=== PATIENT | male | born 1980 | race Caucasian/White ===

== ENCOUNTER 2016-09-15 00:06 | Emergency (ER) | payer BC, MEDICAID ==
[~2016-09-15] VITALS: Ht 182.9 cm; Wt 92.5 kg
[~2016-09-15 00:06] MED LIST: ALBU8.5H3; PREDNISONE
[2016-09-15 00:10] VITALS: Ht 182.9 cm; Wt 92.5 kg
[2016-09-15] MEDS ORDERED: METHYLPREDNISOLONE 125 MG INJ IV STA (01:11)
[2016-09-15] MEDS ORDERED: LEVALBUTEROL (NEB) 1.25 MG/0.5 ML AMP INH STA ×2 (01:11→03:03)
[2016-09-15] MEDS ORDERED: IPRATROPIUM (NEB) 0.5 MG/2.5 ML AMP INH STA ×2 (01:11→03:03)
[2016-09-15] MEDS ORDERED: METHYLPREDNISOLONE 125 MG INJ IM ONE (01:30)
--- NOTE | 2016-09-15 01:40 | RADRPT ---
PROCEDURE: XR Chest. CLINICAL INDICATION: CP, SOB TECHNIQUE: Single AP portable chest COMPARISON: 10/06/2007 FINDINGS: The cardiomediastinal silhouette is within normal limits. The lungs are clear without pleural effus ion or focal consolidation. No pneumothorax. The osseous structures and soft tissues are unremarkab le. IMPRESSION: No evidence for active cardiopulmonary disease. RPTAT:AAJJ Mindy Ortez Physician Date Time Electronically viewed and signed by Mindy Ortez Physician on 09/15/2016 01:39 SRIDHAR/
[2016-09-15] MEDS ORDERED: ACETAMINOPHEN 500 MG TAB PO STA (03:07)
[2016-09-15] MEDS ORDERED: PRED20TA PO (04:30)
--- NOTE | 2016-09-15 05:26 | ERD ---
ER Documentation Chief Complaint Date/Time DATE: 09/15/16 TIME: 05:23 Chief Complaint cough, colds x 4 days, wheezes HPI This is a 36-year-old male with a history of asthma presenting to the emergency room complaining of wheezing shortness of breath for the past couple hours. Patient states that he started having cough and nasal congestion for the past 4 days. Patient has been using albuterol and Thomas his last dose 45 minutes prior to being seen. Patient admits to having chest pain with inspiration. He denies any fever. He denies taking any other medication ROS All systems reviewed and are negative except as per history of present illness. Medications Home Meds Active Scripts Prednisone* (Prednisone*) 20 Mg Tab, 60 MG PO DAILY for 4 Days, TAB Prov:ISMAEL MEDINA PA-C 09/15/16 Reported Medications [Prednisone] No Conflict Check 01/13/12 Albuterol Sulfate* (Proair HFA*) 8.5 Gm Hfa.aer.ad 01/07/12 Allergies Allergies: Coded Allergies: No Known Allergy (Verified , 01/13/12) PMhx/Soc History of Surgery: No Anesthesia Reaction: Yes Hx Neurological Disorder: No Hx Respiratory Disorders: Yes (ASTHMA) Hx Cardiac Disorders: No Hx Psychiatric Problems: No Hx Miscellaneous Medical Probl: No Hx Alcohol Use: Yes (socially) Hx Substance Use: No Hx Tobacco Use: No Smoking Status: Never smoker Physical Exam Vitals Vital Signs Date Time Temp Pulse Resp B/P Pulse Ox O2 Delivery O2 Flow Rate FiO2 09/15/16 03:25 119 24 91 21 09/15/16 01:25 125 26 95 21 09/15/16 00:10 98.3 133 20 188/90 97 Physical Exam GENERAL: WD/WN, in no apparent distress, non-toxic appearing HENT: NC/AT, bilateral TM has good cone of light EYES: Conjunctiva normal NECK: Supple PULM: Inspiratory and expiratory wheezing. No rales, crackles, or rhonchi heard. No tripod position, normal labored breathing, no stridor, no evidence of using accessory muscles. CV: Good capillary refill, good S1 and S2, no murmurs appreciated tachycardia GI: Non-distended, no guarding BACK: No masses. EXT: No clubbing, cyanosis, or edema. NEURO: Moves on all fours SKIN: intact, no cyanosis. PSYCH: Normal mood Results 24 hrs Current Medications Medications (Trade) Dose Ordered Sig/Sylvie Route PRN Reason Start Time Stop Time Status Last Admin Dose Admin Levalbuterol (Xopenex Neb) 5 mg ONCE STAT INH 09/15/16 01:11 09/15/16 01:13 DC 09/15/16 01:27 Ipratropium Lyman (Atrovent 0.02% (Neb)) 1 mg ONCE STAT INH 09/15/16 01:11 09/15/16 01:13 DC 09/15/16 01:26 Methylprednisolone Sodium Succinate (Solu-Medrol) 125 mg ONCE STAT IV 09/15/16 01:11 09/15/16 01:17 DC Methylprednisolone Sodium Succinate (Solu-Medrol) 125 mg ONCE ONCE IM 09/15/16 01:30 09/15/16 01:31 DC 09/15/16 01:20 Levalbuterol (Xopenex Neb) 5 mg ONCE STAT INH 09/15/16 03:03 09/15/16 03:04 DC 09/15/16 03:25 Ipratropium Lyman (Atrovent 0.02% (Neb)) 1 mg ONCE STAT INH 09/15/16 03:03 09/15/16 03:04 DC 09/15/16 03:24 Acetaminophen (Tylenol Tab) 1,000 mg ONCE STAT PO 09/15/16 03:07 09/15/16 03:08 DC 09/15/16 03:17 Procedures/MDM This is a 36-year-old male with a history of asthma presenting to the emergency room with asthma exacerbation, low suspicion for status asthmaticus, pneumonia , inhaled foreign body, or other life threatening pulmonary emergencies due to physical examination. RT was consulted in the ED, breathing treatment was administered with Xopenex 5mg continuous and Atrovent 1mg, patient was given 125 mg Solu-Medrol IM injection. I have reassessed patient and he states that he still had trouble breathing, on examination he still had wheezing therefore another breathing treatment was given of 5 mg Xopenex and Atrovent 1 mg continuous for 1 hour. Patient was saturating well on room air throughout the whole encounter and wheezing improved. He is hemodynamically stable. Patient was saturating well on room air and shortness of breath improved. Prescription for prednisone was given, discussed to have a close follow-up with a primary care physician, discussed to return to the ED if not improving as expected or if condition worsens. Patient understood and agreed with this plan. There was no evidence of respiratory distress EKG: read and signed off by myself and Dr. Morfin Rate/Rhythm: Sinus tachycardia at 1 20 bpm QRS, ST, T-waves: No changes consistent w/ acute ischemia Impression: No evidence of ischemia or arrhythmia Departure Diagnosis: Primary Impression: Asthma exacerbation Condition: Stable Patient Instructions: Asthma Medications, Asthma, Acute (Adult) Additional Instructions: FOLLOW UP WITH YOUR PRIMARY CARE PHYSICIAN TOMORROW.Return to this facility if you are not improving as expected. Return to this facility if you are not improving as expected. Take all medicines as directed. ISMAEL MEDINA PA-C Sep 15, 2016 05:26
[2016-09-15 05:34] VITALS: BP 125/61; PULSE 108; TEMP 97.8
== END 2016-09-15 05:36 | disposition home or self-care (01) ==
LOC: FTE 00:06
DX: J45.901 Unspecified asthma with (acute) exacerbation (principal)
CPT/HCPCS: 71010; 93005; 94644; 96372; J2930; Z7502; Z7610

== ENCOUNTER 2017-03-09 18:05 | Emergency (ER) | payer MEDICAID ==
[~2017-03-09] VITALS: Ht 172.7 cm; Wt 101.1 kg
[~2017-03-09 18:05] MED LIST changes: +PRED20TA PO
[2017-03-09 18:06] VITALS: Ht 172.7 cm; Wt 101.1 kg
[2017-03-09] MEDS ORDERED: ALBUTEROL 0.083% (NEB) 2.5 MG/3 ML AMP HHN STA (18:21)
--- NOTE | 2017-03-09 18:21 | ERD ---
ER Documentation Chief Complaint Date/Time DATE: 03/09/17 TIME: 18:18 Chief Complaint SHORTNESS OF BREATH, ASTHMA ATTACK HPI This 37-year-old male with a history of asthma says that beginning this morning started to experience an asthma attack getting progressively more short of breath throughout the day. Uses albuterol inhaler and his machine at home with some r relief but is still getting worse. He denies any fever chills or feeling poorly lately. ROS All systems reviewed and are negative except as per history of present illness. Medications Home Meds Active Scripts Prednisone* (Prednisone*) 20 Mg Tab, 60 MG PO DAILY for 4 Days, TAB Prov:ISMAEL MEDINA PA-C 09/15/16 Reported Medications [Prednisone] No Conflict Check 01/13/12 Albuterol Sulfate* (Proair HFA*) 8.5 Gm Hfa.aer.ad 01/07/12 Allergies Allergies: Coded Allergies: No Known Allergy (Verified , 01/13/12) PMhx/Soc History of Surgery: No Anesthesia Reaction: Yes Hx Neurological Disorder: No Hx Respiratory Disorders: Yes (ASTHMA) Hx Cardiac Disorders: No Hx Psychiatric Problems: No Hx Miscellaneous Medical Probl: No Hx Alcohol Use: Yes (socially) Hx Substance Use: No Hx Tobacco Use: No Physical Exam Vitals Vital Signs Date Time Temp Pulse Resp B/P Pulse Ox O2 Delivery O2 Flow Rate FiO2 03/09/17 18:06 98.6 130 29 136/87 97 Physical Exam Const: [] Moderate distress, appears very short of breath Head: Atraumatic Eyes: Normal Conjunctiva ENT: Normal External Ears, Nose and Mouth. Neck: Full range of motion..~ No meningismus. Resp: Pronounced bilateral expiratory wheezes, mild tachypnea Cardio: Regular rate and rhythm, no murmurs Ext: No cyanosis, or edema Neur: Awake and alert and oriented 3, no focal deficits Psych: Normal Mood and Affect Procedures/MDM Moderately severe asthma exacerbation. I have low suspicion for pneumonia or pulmonary embolism. 15 mg albuterol and 1 mg Atrovent treatment in the emergency room. Is also given a prednisone 60 mg tablet. His wheezing resolved and he felt much better after the long treatment. Going to discharge him with refill his albuterol inhaler as well as prednisone for 4 more days. Primary care follow-up in the next 2 days as well as return precautions given. Departure Diagnosis: Primary Impression: Acute asthma exacerbation BRIANA VALIENTE DO Mar 09, 2017 18:21
[2017-03-09] MEDS ORDERED: PRED50TA PO (18:25)
[2017-03-09] MEDS ORDERED: ALBU18HF INHALATION (18:25)
[2017-03-09] MEDS ORDERED: ALBU2.5V3 NEB (18:25)
[2017-03-09] MEDS ORDERED: predniSONE 20 MG TAB PO ONE (18:30)
[2017-03-09] MEDS ORDERED: IPRATROPIUM (NEB) 0.5 MG/2.5 ML AMP HHN ONE (18:30)
[2017-03-09] MEDS ORDERED: LEVALBUTEROL (NEB) 1.25 MG/0.5 ML AMP INH STA (20:22)
[2017-03-09] MEDS ORDERED: LEVALBUTEROL (NEB) 1.25 MG/0.5 ML AMP HHN ONE (20:30)
[2017-03-09 21:52] VITALS: BP 153/87; PULSE 112; RESP 16
== END 2017-03-09 21:55 | disposition home or self-care (01) ==
LOC: FTE 18:05
DX: J45.901 Unspecified asthma with (acute) exacerbation (principal)
CPT/HCPCS: 94644; 94645; J7512; Z7502; Z7610

== ENCOUNTER 2018-07-14 17:57 | Emergency (ER) | END 2018-07-14 21:16 | disposition home or self-care (01) ==

== ENCOUNTER 2018-09-14 07:45 | Emergency (ER) | payer SELFPAY ==
[~2018-09-14] VITALS: Ht 167.6 cm; Wt 112.3 kg
[~2018-09-14 07:45] MED LIST changes: +ALBU18HF INHALATION; +ALBU2.5V3 NEB; -ALBU8.5H3; +ALBU8.5H8; +BECL10.62 IH; +PRED50TA PO
[2018-09-14 07:48] VITALS: BP 127/89; PULSE 106; RESP 20; Ht 167.6 cm; Wt 112.3 kg
[2018-09-14] MEDS ORDERED: DEXAMETHASONE 10 MG/ML 1 ML INJ IM STA (08:05)
[2018-09-14] MEDS ORDERED: ALBUTEROL 0.083% (NEB) 2.5 MG/3 ML AMP NEB STA (08:05)
[2018-09-14] MEDS ORDERED: IPRATROPIUM (NEB) 0.5 MG/2.5 ML AMP NEB STA (08:05)
[2018-09-14] MEDS ORDERED: PRED20TA PO (08:08)
[2018-09-14] MEDS ORDERED: BECL10.62 IH (08:08)
[2018-09-14] MEDS ORDERED: ALBU8.5H8 INH (08:08)
--- NOTE | 2018-09-14 08:16 | ERD ---
ER Documentation Chief Complaint Chief Complaint Complains of SOB Hx of Asthma out of medication HPI This is a 38-year-old male with a history of asthma who presents ED with complaints of having an episode of wheezing and shortness of breath earlier today. Patient states that this occurred while he is at work. Patient states that he ran out of his Qvar and his albuterol inhaler last night. Patient states that he was able to calm himself down after this episode and he no longer is experiencing wheezing, shortness of breath trouble breathing or chest tightness. Patient would like a refill of his Qvar inhaler and albuterol and also would like a breathing treatment in the emergency department today. Denies fever, chills, congestion, cough, sputum production, nausea, vomiting, constipation, abdominal pain other symptoms. History of prior intubation and hospitalization for asthma ROS All systems reviewed and are negative except as per history of present illness. Medications Home Meds Active Scripts Prednisone* (Prednisone*) 20 Mg Tab, 40 MG PO DAILY for 4 Days, TAB Prov:ZENAIDA BUCK PA-C 09/14/18 Beclomethasone Dipropionate (Qvar Redihaler (80 MCG)) 10.6 Gm Hfa.aeroba, 10.6 GM IH DAILY, #1 INH Prov:ZENAIDA BUCK PA-C 09/14/18 Albuterol Sulfate* (Proair HFA*) 8.5 Gm Hfa.aer.ad, 2 PUFF INH Q4, #1 INHALER Prov:ZENAIDA BUCK PA-C 09/14/18 Beclomethasone Dipropionate (Qvar Redihaler (80 MCG)) 10.6 Gm Hfa.aeroba, 10.6 GM IH DAILY, #1 INH Prov:NEIL DUNBAR PA-C 07/14/18 Albuterol Sulfate* (Ventolin HFA*) 18 Gm Hfa.aer.ad, 2 PUFF INHALATION Q4H, #1 INHALER Prov:NEIL DUNBAR PA-C 07/14/18 Prednisone* (Prednisone*) 20 Mg Tab, 40 MG PO DAILY for 4 Days, TAB Prov:NEIL DUNBAR PA-C 07/14/18 Prednisone* (Prednisone*) 50 Mg Tablet, 50 MG PO DAILY, #4 TAB Prov:BRIANA VALIENTE DO 03/09/17 Albuterol Sulfate* (Ventolin HFA*) 18 Gm Hfa.aer.ad, 2 PUFF INHALATION Q4H, #1 INHALER Prov:BRIANA VALIENTE DO 03/09/17 Albuterol Sulfate* (Albuterol Sulfate* Neb) 0.083%-3 Ml Neb, 5 MG NEB Q4H, #30 VIAL Prov:BRIANA VALIENTE DO 03/09/17 Prednisone* (Prednisone*) 20 Mg Tab, 60 MG PO DAILY for 4 Days, TAB Prov:ISMAEL MEDINA PA-C 09/15/16 Reported Medications [Prednisone] No Conflict Check 01/13/12 Albuterol Sulfate* (Proair HFA*) 8.5 Gm Hfa.aer.ad 01/07/12 Allergies Allergies: Coded Allergies: No Known Allergy (Verified , 07/14/18) PMhx/Soc History of Surgery: No Anesthesia Reaction: Yes Hx Neurological Disorder: No Hx Respiratory Disorders: Yes (asthma ) Hx Cardiac Disorders: No Hx Psychiatric Problems: No Hx Miscellaneous Medical Probl: No Hx Alcohol Use: Yes (ocassionally ) Hx Substance Use: No Hx Tobacco Use: No FmHx Family History: No diabetes Physical Exam Vitals Vital Signs Date Temp Pulse Resp B/P (MAP) Pulse Ox O2 O2 Flow FiO2 Time Delivery Rate 09/14/18 88 20 98 21 08:20 09/14/18 99.0 106 20 127/89 95 07:48 (102) Physical Exam Physical Exam Vitals signs: Reviewed by me. General: Well developed, well nourished, in no acute distress. Patient is awake and alert. Head: Normocephalic, atraumatic. Eyes: Normal conjunctiva, Pupils PERRLA, EOM intact grossly ENT: Pharynx is clear, Moist mucous membranes, external ears, nose and mouth normal Neck: Supple, no masses, lymphadenopathy or JVD Respiratory: Clear to auscultation bilaterally with no wheezing, rhonchi, rales, no distress, no labored breathing, no shallow inspiration, Cardiovascular: RRR, no murmurs, rubs, or gallops Neurologic: Alert and oriented, moving all extremities, normal speech, no focal weakness, no cerebellar signs. Normal mentation Skin: warm and dry, No rash Psych: Normal mood Results 24 hrs Current Medications Medications Dose Sig/Sylvie Start Time Status Last (Trade) Ordered Route PRN Stop Time Admin Dose Reason Admin Albuterol 5 mg ONCE STAT 09/14/18 DC 09/14/18 (Proventil NEB 08:05 09/14/18 08:19 0.083% (Neb)) 08:07 Ipratropium 0.5 mg ONCE STAT 09/14/18 DC 09/14/18 Henderson NEB 08:05 09/14/18 08:19 (Atrovent 08:07 0.02% (Neb)) 10 mg ONCE STAT 09/14/18 DC 09/14/18 Dexamethasone IM 08:05 09/14/18 08:12 (Decadron) 08:07 Procedures/MDM ER COURSE: The patient was given Decadron IM, breathing treatment in ED The medication was well tolerated and the patient reports improvement in symptoms. The patient was stable throughout ED course. I kept the patient and/or family informed of laboratory and diagnostic imaging results throughout the emergency room course. The patient was promptly evaluated and a treatment plan was devised based on H&P and other data. This plan was discussed with the patient who agreed and had no further questions or concerns prior to discharge. MEDICAL DECISION MAKING: This is a 38-year-old male with a history of asthma who presents ED with complaints of an episode of wheezing and shortness of breath early this morning and also requesting to get a refill this medication. physical examination is unremarkable and there is no wheezing, labored breathing, shortness of breath, or retractions. Patient is requesting a breathing treatment in the emergency department. Patient was given breathing treatment in the emergency department reports feeling better. Pt initial oxygen saturation at arrival in ED was 95, and after breathing treatment oxygen saturation has increased to 98. I have written a refill for patient's Qvar, albuterol inhaler and a short course of steroids. History and physical examination other data not consistent with emergent processes including status asthmaticus, pneumonia, pneumothorax, pleural effusion, sepsis, pulmonary embolism, tension pneumothorax, and other emergencies. There are no emergent life-threatening pathologies at time of discharge. Vitals are stable and patient is appropriate for outpatient management. Advised patient that he needs to follow-up with his primary care in the next 48 hours. Advised to return to ED with any worsening symptoms. DISPOSITION PLAN: We discussed follow up with the patient's primary care doctor within 24 to 48 hours. Patient counseled regarding my diagnostic impression and care plan. Prior to discharge all questions answered. Pt agrees with treatment plan and understands strict return precautions. Precautionary instructions provided including instructions to return to the ER if not improving or for any worsening or changing symptoms or concerns. SPECIALIST FOLLOW UP RECOMMENDED: None Patient has been advised to follow up with primary care in 1-2 days. Disclaimer: Inadvertent spelling and grammatical errors are likely due to EHR/dictation software use and do not reflect on the overall quality of patient care. Also, please note that the electronic time recorded on this note does not necessarily reflect the actual time of the patient encounter. Departure Diagnosis: Primary Impression: Asthma Asthma severity: unspecified severity Asthma persistence: unspecified Asthma complication type: uncomplicated Qualified Codes: J45.909 - Unspecified asthma, uncomplicated Condition: Stable Patient Instructions: Asthma Referrals: [facility] YOU HAVE RECEIVED A MEDICAL SCREENING EXAM AND THE RESULTS INDICATE THAT YOU DO NOT HAVE A CONDITION THAT REQUIRES URGENT TREATMENT IN THE EMERGENCY DEPARTMENT. FURTHER EVALUATION AND TREATMENT OF YOUR CONDITION CAN WAIT UNTIL YOU ARE SEEN IN YOUR DOCTORS OFFICE WITHIN THE NEXT 1-2 DAYS. IT IS YOUR RESPONSIBILITY TO MAKE AN APPOINTMENT FOR FOLOW-UP CARE. IF YOU HAVE A PRIMARY DOCTOR --you should call your primary doctor and schedule an appointment IF YOU DO NOT HAVE A PRIMARY DOCTOR YOU CAN CALL OUR PHYSICIAN REFERRAL HOTLINE AT IF YOU CAN NOT AFFORD TO SEE A PHYSICIAN YOU CAN CHOSE FROM THE FOLLOWING [facility] [address] [facility]. [facility] [address] [facility]. [facility] [address] [facility] [facility] [address] [facility]. [facility] [address] [facility]. [facility]. [address] Additional Instructions: Patient advised to return to the ED immediately for new or worsening symptoms. Patient advised to follow up with primary care provider in the next 24-48 hours. Patient verbalized understanding and agrees with treatment plan and course of action. If patient has no primary care they may follow up with one of the community clinics listed on the following page or one of the options listed below [facility] + [facility] [address] [place] [id number] or [facility] [address] [place] [address] or [facility] [address] [place] [address] ZENAIDA BUCK PA-C Sep 14, 2018 08:16
== END 2018-09-14 09:02 | disposition home or self-care (01) ==
LOC: FTE 07:45
DX: J45.901 Unspecified asthma with (acute) exacerbation (principal)
CPT/HCPCS: 94664; 96372; 99284; J1100

== ENCOUNTER 2018-10-02 07:56 | Emergency (ER) | payer SELFPAY ==
[~2018-10-02] VITALS: Ht 172.7 cm; Wt 112.4 kg
[~2018-10-02 07:56] MED LIST changes: +ALBU8.5H8 INH
[2018-10-02 07:58] VITALS: BP 168/82; PULSE 88; RESP 18; Ht 172.7 cm; Wt 112.4 kg
[2018-10-02] MEDS ORDERED: KETOROLAC 60 MG INJ IM STA (08:30)
[2018-10-02] MEDS ORDERED: SULF1TAB31 PO (08:46)
[2018-10-02] MEDS ORDERED: IBUP-1542 PO (08:46)
[2018-10-02] MEDS ORDERED: CEPH-443 PO (08:46)
--- NOTE | 2018-10-02 11:52 | ERD ---
ER Documentation Chief Complaint Chief Complaint LT FOOT TOES SWOLLEN X 3 DAYS , DENIES INJURY HPI 38-year-old male patient with a past medical history of asthma presents to the ED complaining of left foot swelling and redness that started 3 days ago. Patient reports that he is unsure but may have gotten bitten by an insect in his toes. Reports he has a blister between his neck and and third toe. Denies any fever, chills, nausea, vomiting, diarrhea, neck stiffness, loss of sensation, loss of range of motion. Denies any trauma. ROS All systems reviewed and are negative except as per history of present illness. Medications Home Meds Active Scripts Ibuprofen* (Motrin*) 600 Mg Tab, 600 MG PO Q6, #30 TAB Prov:HALEY SAUCEDA PA-C 10/02/18 Sulfamethoxazole/Trimethoprim* (Bactrim Ds* Tablet) 1 Each Tablet, 1 TAB PO BID for 7 Days, #14 TAB Prov:HALEY SAUCEAD PA-C 10/02/18 Cephalexin* (Keflex*) 500 Mg Capsule, 500 MG PO QID for 7 Days, CAP Prov:HALEY SAUCEDA PA-C 10/02/18 Prednisone* (Prednisone*) 20 Mg Tab, 40 MG PO DAILY for 4 Days, TAB Prov:ZENAIDA BUCK PA-C 09/14/18 Beclomethasone Dipropionate (Qvar Redihaler (80 MCG)) 10.6 Gm Hfa.aeroba, 10.6 GM IH DAILY, #1 INH Prov:ZENAIDA BUCK PA-C 09/14/18 Albuterol Sulfate* (Proair HFA*) 8.5 Gm Hfa.aer.ad, 2 PUFF INH Q4, #1 INHALER Prov:ZENAIDA BUCK PA-C 09/14/18 Beclomethasone Dipropionate (Qvar Redihaler (80 MCG)) 10.6 Gm Hfa.aeroba, 10.6 GM IH DAILY, #1 INH Prov:NEIL DUNBAR PA-C 07/14/18 Albuterol Sulfate* (Ventolin HFA*) 18 Gm Hfa.aer.ad, 2 PUFF INHALATION Q4H, #1 INHALER Prov:NEIL DUNBAR PA-C 07/14/18 Prednisone* (Prednisone*) 20 Mg Tab, 40 MG PO DAILY for 4 Days, TAB Prov:NEIL DUNBAR PA-C 07/14/18 Prednisone* (Prednisone*) 50 Mg Tablet, 50 MG PO DAILY, #4 TAB Prov:BRIANA VALIENTE DO 03/09/17 Albuterol Sulfate* (Ventolin HFA*) 18 Gm Hfa.aer.ad, 2 PUFF INHALATION Q4H, #1 INHALER Prov:BRIANA VALIENTE DO 03/09/17 Albuterol Sulfate* (Albuterol Sulfate* Neb) 0.083%-3 Ml Neb, 5 MG NEB Q4H, #30 VIAL Prov:BRIANA VALIENTE DO 03/09/17 Prednisone* (Prednisone*) 20 Mg Tab, 60 MG PO DAILY for 4 Days, TAB Prov:ISMAEL MEDINA PA-C 09/15/16 Reported Medications [Prednisone] No Conflict Check 01/13/12 Albuterol Sulfate* (Proair HFA*) 8.5 Gm Hfa.aer.ad 01/07/12 Allergies Allergies: Coded Allergies: No Known Allergy (Verified , 07/14/18) PMhx/Soc History of Surgery: No Anesthesia Reaction: Yes Hx Neurological Disorder: No Hx Respiratory Disorders: Yes (asthma ) Hx Cardiac Disorders: No Hx Psychiatric Problems: No Hx Miscellaneous Medical Probl: No Hx Alcohol Use: Yes (ocassionally ) Hx Substance Use: No Hx Tobacco Use: No FmHx Family History: No diabetes, No coronary disease Physical Exam Vitals Vital Signs Date Temp Pulse Resp B/P (MAP) Pulse Ox O2 O2 Flow FiO2 Time Delivery Rate 10/02/18 98.2 88 18 168/82 98 07:58 (110) Physical Exam Const: Cse-npr-rbqrmecyi, well-nourished. In no acute distress. Head: Atraumatic, normocephalic Eyes: Normal Conjunctiva without injection ENT: Normal external ear, nose and mouth. Neck: Full range of motion. No meningismus. Resp: Clear to auscultation bilaterally. No wheezing, rhonchi, rales, or crackles. No accessory muscle use. No retractions. Cardio: Regular rate and rhythm, no murmurs Skin: No petechiae or rashes Back: No midline tenderness. No CVA tenderness. Ext: No cyanosis, or edema. Cap refill less than 2 seconds. Distal pulses intact bilaterally. Clear fluid-filled blister 2.5 cm in size noted in between third and fourth left toes with extending erythema to the dorsum of patient's left foot with no ankle involvement. Full range of motion of the IP, MTP joints bilaterally. Neur: Awake and alert. Normal gait and coordination. Muscle strength 5/5. Sensation intact bilaterally. Psych: Normal Mood and Affect Results 24 hrs Current Medications Medications Dose Sig/Sylvie Start Time Status Last (Trade) Ordered Route PRN Stop Time Admin Dose Reason Admin Ketorolac 60 mg ONCE STAT 10/02/18 DC 10/02/18 Tromethamine IM 08:30 08:41 (Toradol) 10/02/18 08:31 Procedures/MDM 38-year-old male patient with no significant past medical history presents to the ED complaining of left foot toe swelling with a blister noted 3 days ago. Patient is afebrile and nontoxic-appearing. Patient has a blister noted in the second and third toe. Patient was treated here in the ED with Toradol 60 mg IM with improvement of his pain. Differentials include friction blister versus insect bite. Patient was noted to have cellulitis. Pen marking performed in the ED. Instructed patient that if there is any erythema extending past the pen marking, he is to return to the ED for the symptoms. Patient is neurovascularly intact. Patient's extremity symptoms have stabilized while they have been evaluated in the department and are appropriate for outpatient follow up. No evidence of fractures, dislocations, compartment syndrome, neurologic injury, vascular injury, open joint, open fracture, tendon laceration, septic arthritis, osteomyelitis, DVT, foreign body, or other emergent conditions. Diagnosis: Cellulitis of left foot, Blister of left foot Discharge medications: Ibuprofen, Bactrim, Keflex Follow up with primary care physician in 1-2 days. Wound check in 2 days. Instructed patient to return to the ED sooner for any worsening symptoms. Patient's questions were answered. Patient is hemodynamically stable. Patient understood and agreed with discharge plan. Patient discharged stable. Disclaimer: Inadvertent spelling and grammatical errors are likely due to EHR/dictation software use and do not reflect on the overall quality of patient care. Also, please note that the electronic time recorded on this note does not necessarily reflect the actual time of the patient encounter. Departure Diagnosis: Primary Impression: Cellulitis of foot, left Additional Impression: Blister of foot, left Encounter type: initial encounter Qualified Codes: S90.822A - Blister (nonthermal), left foot, initial encounter Condition: Stable Patient Instructions: Cellulitis, Blister Referrals: [facility] YOU HAVE RECEIVED A MEDICAL SCREENING EXAM AND THE RESULTS INDICATE THAT YOU DO NOT HAVE A CONDITION THAT REQUIRES URGENT TREATMENT IN THE EMERGENCY DEPARTMENT. FURTHER EVALUATION AND TREATMENT OF YOUR CONDITION CAN WAIT UNTIL YOU ARE SEEN IN YOUR DOCTORS OFFICE WITHIN THE NEXT 1-2 DAYS. IT IS YOUR RESPONSIBILITY TO MAKE AN APPOINTMENT FOR FOLOW-UP CARE. IF YOU HAVE A PRIMARY DOCTOR --you should call your primary doctor and schedule an appointment IF YOU DO NOT HAVE A PRIMARY DOCTOR YOU CAN CALL OUR PHYSICIAN REFERRAL HOTLINE AT IF YOU CAN NOT AFFORD TO SEE A PHYSICIAN YOU CAN CHOSE FROM THE FOLLOWING [facility] [id number] [facility] [address] [facility] [address] [facility] [address] [facility]. [facility] [address] [facility] [address] [facility] [address] [facility]. [facility]. [address] [facility]. [facility] YOU HAVE RECEIVED A MEDICAL SCREENING EXAM AND THE RESULTS INDICATE THAT YOU DO NOT HAVE A CONDITION THAT REQUIRES URGENT TREATMENT IN THE EMERGENCY DEPARTMENT. FURTHER EVALUATION AND TREATMENT OF YOUR CONDITION CAN WAIT UNTIL YOU ARE SEEN IN YOUR DOCTORS OFFICE WITHIN THE NEXT 1-2 DAYS. IT IS YOUR RESPONSIBILITY TO MAKE AN APPOINTMENT FOR FOLOW-UP CARE. IF YOU HAVE A PRIMARY DOCTOR --you should call your primary doctor and schedule and appointment IF YOU DO NOT HAVE A PRIMARY DOCTOR YOU CAN CALL OUR PHYSICIAN REFERRAL HOTLINE AT . IF YOU CAN NOT AFFORD TO SEE A PHYSICIAN YOU CAN CHOSE FROM THE FOLLOWING [facility] INSTITUTIONS: [facility] [address] [place] [address] [facility] [address] [place] [address] [facility] + [facility] [address] [place] [address] [facility] URGENT CARE/SPECIALTIES Additional Instructions: Follow up in 2 days in your clinic for wound check. Call your primary care doctor TOMORROW for an appointment during the next 2-3 days.See the doctor sooner or return here if your condition worsens before your appointment time. HALEY SAUCEDA PA-C Oct 02, 2018 11:52
== END 2018-10-02 09:18 | disposition home or self-care (01) ==
LOC: FTE 07:56
DX: L03.116 Cellulitis of left lower limb (principal); S90.822A Blister (nonthermal), left foot, initial encounter; J45.909 Unspecified asthma, uncomplicated; W57.XXXA Bitten or stung by nonvenomous insect and other nonvenomous arthropods, initial encounter; Y92.9 Unspecified place or not applicable
CPT/HCPCS: 96372; 99284; J1885

== ENCOUNTER 2018-10-11 11:37 | Emergency (ER) | payer SELFPAY ==
[~2018-10-11] VITALS: Ht 172.7 cm; Wt 109.6 kg
[~2018-10-11 11:37] MED LIST changes: +CEPH-443 PO; +IBUP-1542 PO; +SULF1TAB31 PO
[2018-10-11 11:40] VITALS: Ht 172.7 cm; Wt 109.6 kg
[2018-10-11] MEDS ORDERED: ALBUTEROL 0.5% (NEB) 2.5 MG/0.5 ML AMP INH STA (11:54)
[2018-10-11] MEDS ORDERED: IPRATROPIUM (NEB) 0.5 MG/2.5 ML AMP INH STA (11:54)
[2018-10-11] MEDS ORDERED: DEXAMETHASONE 10 MG/ML 1 ML INJ IM STA (11:54)
--- NOTE | 2018-10-11 12:41 | ERD ---
ER Documentation Chief Complaint Chief Complaint asthma out of inhaler, used inhaler last night HPI This patient is a 38-year-old male with past medical history of asthma presenting to the emergency department complaining of wheezing and asthma exacerbation for the past 1 day. He states he ran out of his inhaler yesterday. He does have a nebulizer at home but ran out of the albuterol vials. Symptoms are mild in severity and intermittent. He does report history of intubation and approximately 6 hospitalizations in the past for his asthma. He denies any sore throat, fevers, chills, or other symptoms at this time. ROS All systems reviewed and are negative except as per history of present illness. Medications Home Meds Active Scripts Albuterol Sulfate* (Albuterol Sulfate* Neb) 0.083%-3 Ml Neb, 2.5 MG NEB Q4 PRN for SHORTNESS OF BREATH, #30 EA Prov:NEIL DUNBAR PA-C 10/11/18 Albuterol Sulfate* (Ventolin HFA*) 18 Gm Hfa.aer.ad, 2 PUFF INHALATION Q4H, #1 INHALER Prov:NEIL DUNBAR PA-C 10/11/18 Prednisone* (Prednisone*) 20 Mg Tab, 40 MG PO DAILY for 4 Days, TAB Prov:NEIL DUNBAR PA-C 10/11/18 Ibuprofen* (Motrin*) 600 Mg Tab, 600 MG PO Q6, #30 TAB Prov:HALEY SAUCEDA PA-C 10/02/18 Sulfamethoxazole/Trimethoprim* (Bactrim Ds* Tablet) 1 Each Tablet, 1 TAB PO BID for 7 Days, #14 TAB Prov:HALEY SAUCEDA PA-C 10/02/18 Cephalexin* (Keflex*) 500 Mg Capsule, 500 MG PO QID for 7 Days, CAP Prov:HALEY SAUCEDA PA-C 10/02/18 Prednisone* (Prednisone*) 20 Mg Tab, 40 MG PO DAILY for 4 Days, TAB Prov:ZENAIDA BUCK PA-C 09/14/18 Beclomethasone Dipropionate (Qvar Redihaler (80 MCG)) 10.6 Gm Hfa.aeroba, 10.6 GM IH DAILY, #1 INH Prov:ZENAIDA BUCK PA-C 09/14/18 Albuterol Sulfate* (Proair HFA*) 8.5 Gm Hfa.aer.ad, 2 PUFF INH Q4, #1 INHALER Prov:ZENAIDA BUCK PA-C 09/14/18 Beclomethasone Dipropionate (Qvar Redihaler (80 MCG)) 10.6 Gm Hfa.aeroba, 10.6 GM IH DAILY, #1 INH Prov:NEIL DUNBAR PA-C 07/14/18 Albuterol Sulfate* (Ventolin HFA*) 18 Gm Hfa.aer.ad, 2 PUFF INHALATION Q4H, #1 INHALER Prov:NEIL DUNBAR PA-C 07/14/18 Prednisone* (Prednisone*) 20 Mg Tab, 40 MG PO DAILY for 4 Days, TAB Prov:NEIL DUNBAR PA-C 07/14/18 Prednisone* (Prednisone*) 50 Mg Tablet, 50 MG PO DAILY, #4 TAB Prov:BRIANA VALIENTE DO 03/09/17 Albuterol Sulfate* (Ventolin HFA*) 18 Gm Hfa.aer.ad, 2 PUFF INHALATION Q4H, #1 INHALER Prov:BRIANA VALIENTE DO 03/09/17 Albuterol Sulfate* (Albuterol Sulfate* Neb) 0.083%-3 Ml Neb, 5 MG NEB Q4H, #30 VIAL Prov:BRIANA VALIENTE DO 03/09/17 Prednisone* (Prednisone*) 20 Mg Tab, 60 MG PO DAILY for 4 Days, TAB Prov:ISMAEL MEDINA PA-C 09/15/16 Reported Medications [Prednisone] No Conflict Check 01/13/12 Albuterol Sulfate* (Proair HFA*) 8.5 Gm Hfa.aer.ad 01/07/12 Allergies Allergies: Coded Allergies: No Known Allergy (Verified , 07/14/18) PMhx/Soc Medical and Surgical Hx: pt denies Surgical Hx History of Surgery: No Anesthesia Reaction: Yes Hx Neurological Disorder: No Hx Respiratory Disorders: Yes (asthma ) Hx Cardiac Disorders: No Hx Psychiatric Problems: No Hx Miscellaneous Medical Probl: No Hx Alcohol Use: Yes (ocassionally ) Hx Substance Use: No Hx Tobacco Use: No Smoking Status: Never smoker FmHx Family History: No diabetes Physical Exam Vitals Vital Signs Date Temp Pulse Resp B/P (MAP) Pulse Ox O2 O2 Flow FiO2 Time Delivery Rate 10/11/18 95 18 96 21 12:21 10/11/18 98.6 104 20 161/91 96 11:40 (114) Physical Exam Const: No acute distress Head: Atraumatic Eyes: Normal Conjunctiva ENT: Normal External Ears, Nose and Mouth. Neck: Full range of motion. No meningismus. Resp: No obvious respiratory distress. Inspiratory and expiratory wheezing noted to all lung carlton. No crackles. Cardio: Regular rate and rhythm, no murmurs Skin: No petechiae or rashes Ext: No cyanosis, or edema Neur: Awake and alert Psych: Normal Mood and Affect Results 24 hrs Current Medications Medications Dose Sig/Sylvie Start Time Status Last (Trade) Ordered Route PRN Stop Time Admin Dose Reason Admin Albuterol 10 mg ONCE STAT 10/11/18 DC 10/11/18 (Proventil INH 11:54 10/11/18 12:19 0.5% (Neb)) 11:55 Ipratropium 1 mg ONCE STAT 10/11/18 DC 10/11/18 Senatobia INH 11:54 10/11/18 12:19 (Atrovent 11:55 0.02% (Neb)) 10 mg ONCE STAT 10/11/18 DC 10/11/18 Dexamethasone IM 11:54 10/11/18 12:00 (Decadron) 11:55 Procedures/MDM Patient is a 38-year-old male presenting to the emergency department with complaints of asthma exacerbation. The patient did have inspiratory and expiratory wheezing noted to all lung carlton without evidence of respiratory distress. He was immediately placed into a stretcher. He was administered albuterol/ipratropium breathing treatment for 1 hour. Pt was also administered IM Decadron. On reevaluation he was significantly improved. Patient's respiratory status has stabilized while in the department and is appropriate for outpatient work up. Exam and work up not consistent w/ impending respiratory failure or cardiovascular collapse. No evidence of life-threatening pathology at time of discharge. Pt/family in agreement with discharge plan/diagnosis. Pt/family advised to return immediately with any new or worsening symptoms. Follow-up with primary care physician within the next 1-2 days. Patient's blood pressure was elevated (>120/80) but appears stable without evidence of hypertension emergency or urgency. The patient is to follow-up and pursue outpatient monitoring and therapy with their primary care physician within 1 week and return immediately if they have any new, worsening, or concerning symptoms. Disclaimer: Inadvertent spelling and grammatical errors are likely due to EHR/dictation software use and do not reflect on the overall quality of patient care. Also, please note that the electronic time recorded on this note does not necessarily reflect the actual time of the patient encounter. Departure Diagnosis: Primary Impression: Asthma with acute exacerbation Asthma severity: unspecified severity Asthma persistence: unspecified Qualified Codes: J45.901 - Unspecified asthma with (acute) exacerbation Condition: Fair Patient Instructions: Asthma, Acute (Adult) Additional Instructions: Follow up with your PCP within the next 1-3 days for a repeat evaluation. If you require a referral to a specialist, your Primary Care Provider may be able to provide this for you. In most patient cases, a referral is not required. If you have further questions regarding this matter, please ask your Primary Care Provider. Return the the emergency department immediately if symptoms worsen or change. If you have any questions regarding medications, ask your pharmacist or us before you leave. If any adverse reactions, occur while taking your medications, discontinue the treatment and return to the emergency department immediately. If any new or worsening symptoms, uncontrolled fevers, or other unexplained symptoms occur, return to the emergency department immediately. Take your medications as directed, and complete the entire course of treatment. NEIL DUNBAR PA-C Oct 11, 2018 12:41
[2018-10-11] MEDS ORDERED: ALBU2.5V3 NEB (12:52)
[2018-10-11] MEDS ORDERED: ALBU18HF INHALATION (12:52)
[2018-10-11] MEDS ORDERED: PRED20TA PO (12:52)
[2018-10-11 13:25] VITALS: BP 138/85; PULSE 90; RESP 16
== END 2018-10-11 13:25 | disposition home or self-care (01) ==
LOC: FTE 11:37
DX: J45.901 Unspecified asthma with (acute) exacerbation (principal)
CPT/HCPCS: 94644; 96372; 99284; J1100

== ENCOUNTER 2018-10-18 21:36 | Inpatient (IN) | payer SELFPAY ==
[~2018-10-18] VITALS: Ht 172.7 cm; Wt 112.4 kg
[2018-10-18] MEDS ORDERED: DEXAMETHASONE 10 MG/ML 1 ML INJ IV STA (22:11)
[2018-10-18] MEDS ORDERED: SOD CHLORIDE 0.9% 1,000 ML IV STA (22:11)
[2018-10-18] MEDS ORDERED: EPINEPHrine 1 MG INJ SC STA (22:11)
[2018-10-18] MEDS ORDERED: ALBUTEROL 0.5% (NEB) 2.5 MG/0.5 ML AMP INH STA (22:11)
--- NOTE | 2018-10-18 22:41 | ERD ---
ER Documentation Chief Complaint Chief Complaint CP w/ SOB/itching/total body rash/dizziness/nausea, unk allergy x1 hour HPI 38-year-old man complains of full body itchy red rash, shortness of breath, wheezing, palpitations, nausea and dizziness occurring shortly after eating chicken, rice, and red sauce. Patient also used 2 doses of cephalexin today, but he had been using that all last week for a left third toe infection. Delfina ent denies loss of consciousness but he does have a history of asthma and admits to wheezing with today's episode. He denies recent fevers or chills, no changes in his voice, no sore throat, no difficulty speaking or swallowing. Patient denies abdominal pain or cramping. ROS All systems reviewed and are negative except as per history of present illness. Medications Home Meds Active Scripts Albuterol Sulfate* (Albuterol Sulfate* Neb) 0.083%-3 Ml Neb, 2.5 MG NEB Q4 PRN for SHORTNESS OF BREATH, #30 EA Prov:NEIL DUNBAR PA-C 10/11/18 Albuterol Sulfate* (Ventolin HFA*) 18 Gm Hfa.aer.ad, 2 PUFF INHALATION Q4H, #1 INHALER Prov:NEIL DUNBAR PA-C 10/11/18 Prednisone* (Prednisone*) 20 Mg Tab, 40 MG PO DAILY for 4 Days, TAB Prov:NEIL DUNBAR PA-C 10/11/18 Ibuprofen* (Motrin*) 600 Mg Tab, 600 MG PO Q6, #30 TAB Prov:HALEY SAUCEDA PA-C 10/02/18 Sulfamethoxazole/Trimethoprim* (Bactrim Ds* Tablet) 1 Each Tablet, 1 TAB PO BID for 7 Days, #14 TAB Prov:HALEY SAUCEDA PA-C 10/02/18 Cephalexin* (Keflex*) 500 Mg Capsule, 500 MG PO QID for 7 Days, CAP Prov:HALEY SAUCEDA PA-C 10/02/18 Prednisone* (Prednisone*) 20 Mg Tab, 40 MG PO DAILY for 4 Days, TAB Prov:ZENAIDA BUCK PA-C 09/14/18 Beclomethasone Dipropionate (Qvar Redihaler (80 MCG)) 10.6 Gm Hfa.aeroba, 10.6 GM IH DAILY, #1 INH Prov:ZENAIDA BUCK PA-C 09/14/18 Albuterol Sulfate* (Proair HFA*) 8.5 Gm Hfa.aer.ad, 2 PUFF INH Q4, #1 INHALER Prov:ZENAIDA BUCK PA-C 09/14/18 Beclomethasone Dipropionate (Qvar Redihaler (80 MCG)) 10.6 Gm Hfa.aeroba, 10.6 GM IH DAILY, #1 INH Prov:NEIL DUNBAR PA-C 07/14/18 Albuterol Sulfate* (Ventolin HFA*) 18 Gm Hfa.aer.ad, 2 PUFF INHALATION Q4H, #1 INHALER Prov:NEIL DUNBAR PA-C 07/14/18 Prednisone* (Prednisone*) 20 Mg Tab, 40 MG PO DAILY for 4 Days, TAB Prov:NEIL DUNBAR PA-C 07/14/18 Prednisone* (Prednisone*) 50 Mg Tablet, 50 MG PO DAILY, #4 TAB Prov:BRIANA VALIENTE DO 03/09/17 Albuterol Sulfate* (Ventolin HFA*) 18 Gm Hfa.aer.ad, 2 PUFF INHALATION Q4H, #1 INHALER Prov:BRIANA VALIENTE DO 03/09/17 Albuterol Sulfate* (Albuterol Sulfate* Neb) 0.083%-3 Ml Neb, 5 MG NEB Q4H, #30 VIAL Prov:BRIANA VALIENTE DO 03/09/17 Prednisone* (Prednisone*) 20 Mg Tab, 60 MG PO DAILY for 4 Days, TAB Prov:ISMAEL MEDINA PA-C 09/15/16 Reported Medications [Prednisone] No Conflict Check 01/13/12 Albuterol Sulfate* (Proair HFA*) 8.5 Gm Hfa.aer.ad 01/07/12 Allergies Allergies: Coded Allergies: No Known Allergy (Verified , 07/14/18) PMhx/Soc Asthma Medical and Surgical Hx: pt denies Medical Hx, pt denies Surgical Hx History of Surgery: No Anesthesia Reaction: Yes Hx Neurological Disorder: No Hx Respiratory Disorders: Yes (asthma ) Hx Cardiac Disorders: No Hx Psychiatric Problems: No Hx Miscellaneous Medical Probl: No Hx Alcohol Use: Yes (ocassionally ) Hx Substance Use: No Hx Tobacco Use: No Smoking Status: Never smoker FmHx Family History: No diabetes Physical Exam Vitals Vital Signs Date Temp Pulse Resp B/P (MAP) Pulse Ox O2 O2 Flow FiO2 Time Delivery Rate 10/19/18 103 18 150/73 93 Room Air 00:33 (98) 10/18/18 108 22 96 Nasal 4.0 22:35 Cannula 10/18/18 Nasal 5 22:27 Cannula 10/18/18 97.9 63 18 80/52 (61) 96 21:43 Physical Exam GENERAL: Well-developed, well-nourished, well-hydrated, in no apparent distress, looks nontoxic in appearance, afebrile HEENT: Moist mucous membranes, pink conjunctiva, no cervical spine tenderness or step-off deformities, no goiter, no jaundice or icterus, extraocular movements intact without pain. No submandibular induration, and no pharyngeal erythema NEURO: Alert and oriented 3, cranial nerves II through XII intact bilaterally, pupils equal round reactive to light, no focal deficits or facial asymmetry, sensation intact distally Strength 5/5 in upper and lower extremities bilaterally CARDIAC: Tachycardic and regular, no murmurs rubs or gallops LUNGS: Mild wheezing bilaterally ABDOMEN: Soft nontender, no guarding, no rigidity, no rebound, no psoas sign no obturator sign. Normoactive bowel sounds SKIN: Warm and dry to touch, diffuse erythematous pruritic maculopapular rash, urticarial, no vesicles, ulcerations, pustules noted EXTREMITIES: No clubbing cyanosis or edema, calves are bilaterally symmetrical, no Homans sign, no popliteal cord sign. Distal pulses equal and bilateral PSYCH: Normal affect without agitation or irritability Result Diagram: 10/18/184 10/18/182223 Results 24 hrs Laboratory Tests Test 10/18/18 22:24 White Blood Count 14.5 10^3/ul Red Blood Count 5.78 10^6/ul Hemoglobin 17.3 g/dl Hematocrit 50.5 % Mean Corpuscular Volume 87.4 fl Mean Corpuscular Hemoglobin 29.9 pg Mean Corpuscular Hemoglobin Concent 34.3 g/dl Red Cell Distribution Width 12.1 % Platelet Count 414 10^3/UL Mean Platelet Volume 10.5 fl Immature Granulocytes % 0.400 % Neutrophils % % Segmented Neutrophils % (Manual) 46 % Lymphocytes % % Lymphocytes % (Manual) 40 % Reactive Lymphocytes % (Manual) 9 % Monocytes % % Monocytes % (Manual) 4 % Eosinophils % % Eosinophils % (Manual) 1 % Basophils % % Nucleated Red Blood Cells % 0.0 /100WBC Immature Granulocytes # 0.060 10^3/ul Neutrophils # 10^3/ul Lymphocytes (Manual) 5.8 10^3/ul Lymphocytes # 10^3/ul Reactive Lymphocytes # 1.3 10^3/ul Monocytes # 10^3/ul Monocytes # (Manual) 0.5 10^3/ul Eosinophils # 10^3/ul Basophils # 10^3/ul Nucleated Red Blood Cells # 10^3/ul Platelet Estimate NORMAL Giant Platelets 1 % Sodium Level 140 mmol/L Potassium Level 4.3 mmol/L Chloride Level 109 mmol/L Carbon Dioxide Level 23 mmol/L Anion Gap 8 Blood Urea Nitrogen 12 mg/dl Creatinine 1.31 mg/dl Est Glomerular Filtrat Rate mL/min > 60 mL/min Glucose Level 177 mg/dl Calcium Level 8.1 mg/dl Troponin I < 0.012 ng/ml Current Medications Medications Dose Sig/Sylvie Start Time Status Last (Trade) Ordered Route PRN Stop Time Admin Dose Reason Admin Epinephrine 0.3 mg ONCE STAT 10/18/18 DC 10/18/18 SC 22:11 10/18/18 22:16 (EPINEPHrine) 22:13 Sodium 1,000 ml @ Q30M STAT 10/18/18 DC 10/18/18 Chloride 2,000 mls/hr IV 22:11 10/18/18 22:22 22:40 Albuterol 10 mg ONCE STAT 10/18/18 DC (Proventil INH 22:11 10/18/18 0.5% (Neb)) 22:13 10 mg ONCE STAT 10/18/18 DC 10/18/18 Dexamethasone IV 22:11 10/18/18 22:22 (Decadron) 22:13 50 mg ONCE ONCE 10/18/18 DC 10/18/18 Diphenhydrami IV 23:00 10/18/18 22:55 ne HCl 23:01 (Benadryl) Famotidine 20 mg ONCE ONCE 10/18/18 DC 10/18/18 (Pepcid) PO 23:00 10/18/18 22:55 23:01 Famotidine 20 mg BID IV 10/19/18 (Pepcid Iv) 09:00 50 mg Q6H PRN 10/19/18 Diphenhydrami IV ITCHING 01:00 ne HCl (Benadryl) Albuterol/ 3 ml Q4H RESP 10/19/18 Ipratropium THERAPY PRN 01:00 (Duoneb) HHN SHORTNESS OF BREATH IV Flush 3 ml PER 10/19/18 (NS 3 ml) PROTOCOL IV 01:00 Ondansetron 4 mg Q6H PRN 10/19/18 HCl (Zofran IV 01:00 Inj) NAUSEA/VOMITI NG 650 mg Q6H PRN 10/19/18 Acetaminophen PO .PAIN 1-3 01:00 (Tylenol OR TEMP Tab) Docusate 100 mg Q12H PRN 10/19/18 Sodium PO 01:00 (Colace) .CONSTIPATION Bisacodyl 5 mg DAILY PRN 10/19/18 (Dulcolax) PO 01:00 .CONSTIPATION Procedures/MDM IV line was established patient was placed on regional ehs manager rhythm strip reve aled a sinus tachycardia at 110 bpm with upright P and T waves. Patient was afebrile One AP view of the chest performed, read by me reveals no acute infiltrates, normal mediastinum, sharp costophrenic and cardiac borders, no air under the diaphragm. Otherwise unremarkable chest x-ray. I administered 2 L normal saline IV, epinephrine 0.3 mg IM x1, dexamethasone 10 mg IV, albuterol 10 mg via nebulizer, diphenhydramine 50 mg IV x1, famotidine 20 mg p.o. CBC and electrolytes are normal, troponin was negative EKG performed, read by me revealed a sinus tachycardia at 109 bpm, normal axis, narrow QRS complex, no concerning ST elevations or depressions noted Critical Care: Time: 42 minutes, this was time separate from other billable procedures. Treatments/Evaluations: Close monitoring and treatment of unstable vital signs, cardiorespiratory, and neurologic status, while maintaining tight balance of fluid, respiratory, and cardiac interventions. Patient has signs and symptoms of an anaphylactic reaction with dyspnea and hives and initial hypotension. He will be admitted to telemetry setting for continued medical management and observation. Departure Diagnosis: Primary Impression: Acute anaphylaxis Encounter type: initial encounter Qualified Codes: T78.2XXA - Anaphylactic shock, unspecified, initial encounter Condition: LUIS Dalton MD Oct 18, 2018 22:41
[2018-10-18] MEDS ORDERED: FAMOTIDINE 20 MG TAB PO ONE (23:00)
[2018-10-18] MEDS ORDERED: DIPHENHYDRAMINE 50 MG INJ IV ONE (23:00)
[2018-10-19] VITALS (12 sets, daily range): BP systolic 101–151; BP diastolic 55–73; PULSE 77–96; RESP 20–28; Ht 172.7 cm; Wt 112.4 kg
--- NOTE | 2018-10-19 00:43 | HP ---
Date/Time of Note Date/Time of Note DATE: 10/19/18 TIME: 00:42 Assessment/Plan VTE Prophylaxis SCD applied (from Nsg): Yes Pharmacological prophylaxis: NA/contraindicated Pharm contraindication: low risk/ambulating Lines/Catheters IV Catheter Type (from Nrsg): Saline Lock Assessment/Plan Hospital Course This is a 38-year-old male being admitted to the telemetry floor for: #1 anaphylaxis: Possibly secondary to food versus antibiotic. Unsure at the given time what exactly the patient reacted to, he has been on Keflex for a couple of days but did not start having a reaction until yesterday so I am unsure whether Keflex is the cause. He also had a variety of foods unsure if he had a reaction to that. He did receive Decadron, epinephrine, Benadryl and famotidine and albuterol treatment in the ED. At the current time we will continue as needed Benadryl IV, famotidine IV and PRN duo nebs. He does not appear to be in any respiratory distress now and there are no wheals or rashes o r hives noted. #2 left foot third digit infection: There appears to be a abscess/cyst of the medial aspect of the toe. There is some erythema of the toe as well. The current time will obtain a left foot x-ray. We will put the patient on clindamycin p.o. Will consult podiatry possible I&D. #3 obesity: We will check hemoglobin A 1C, lipid panel, TSH #4 asthma: PRN nebs #5 DVT GI prophylaxis: SCDs, H2 catracho Further treatment strategy will be implemented as per the clinical course. Result Diagram: 10/18/184 10/18/18 2224 Results 24hrs Laboratory Tests Test 10/18/18 22:24 White Blood Count 14.5 H Red Blood Count 5.78 Hemoglobin 17.3 Hematocrit 50.5 Mean Corpuscular Volume 87.4 Mean Corpuscular Hemoglobin 29.9 Mean Corpuscular Hemoglobin Concent 34.3 Red Cell Distribution Width 12.1 Platelet Count 414 Mean Platelet Volume 10.5 H Immature Granulocytes % 0.400 Neutrophils % Segmented Neutrophils % (Manual) 46 Lymphocytes % Lymphocytes % (Manual) 40 Reactive Lymphocytes % (Manual) 9 H Monocytes % Monocytes % (Manual) 4 Eosinophils % Eosinophils % (Manual) 1 Basophils % Nucleated Red Blood Cells % 0.0 Immature Granulocytes # 0.060 H Neutrophils # Lymphocytes (Manual) 5.8 H Lymphocytes # Reactive Lymphocytes # 1.3 H Monocytes # Monocytes # (Manual) 0.5 Eosinophils # Basophils # Nucleated Red Blood Cells # Platelet Estimate NORMAL Giant Platelets 1 H Sodium Level 140 Potassium Level 4.3 Chloride Level 109 Carbon Dioxide Level 23 Anion Gap 8 Blood Urea Nitrogen 12 Creatinine 1.31 H Est Glomerular Filtrat Rate mL/min > 60 Glucose Level 177 Calcium Level 8.1 L Troponin I < 0.012 HPI/ROS Admit Date/Time Admit Date/Time Hx of Present Illness Chief complaint: Shortness of breath, itching 38-year-old man complains of full body itchy red rash, shortness of breath, wheezing, palpitations, nausea and dizziness occurring shortly after eating chicken, rice, and red sauce Patient also used 2 doses of cephalexin today, but he had been using that all last week for a left third toe infection. Patient denies loss of consciousness but he does have a history of asthma and ad mits to wheezing with today's episode. He denies recent fevers or chills, no changes in his voice, no sore throat, no difficulty speaking or swallowing. Patient denies abdominal pain or cramping. patient did receive dexamethasone, epinephrine, nebulization treatment as well as Benadryl and famotidine with good response. Upon my examination of the patient at the bedside he appeared to be in no acute distress, no longer had any rash or wheals or hives across his body. Patient was taking Keflex for infection of his left foot third digit. Allergies: Possibly Keflex Medications: See Nov Const: As per HPI Eyes : No pain discharge or redness or change in visual acuity ENT: No pain, sore throat, congestion, congestion, dysphagia or discharge Respiratory: No shortness of breath, cough, sputum, wheezing, or pleuritic pain Cardiovascular: No chest pain, palpitation, PND, or edema GI : no change in appetite, abdominal pain, nausea, vomiting, diarrhea, constipation, or change in the color his stool Genitourinary: No dysuria, hematuria, flank pain , discharge or CVA tenderness Musculoskeletal: As per HPI Skin: As per HPI Neuro: No headache, dizziness, syncope, seizure, focal weakness Endocrine: No polyuria, polydipsia, temperature intolerance Psych: No hallucination, depression, anxiety or suicidal ideation PMH/Family/Social Past Medical History Asthma, left foot third toe infection Medications Current Medications Famotidine (Pepcid Iv) 20 mg BID IV ; Start 10/19/18 at 09:00; Status UNV Diphenhydramine HCl (Benadryl) 50 mg Q6H PRN IV ITCHING; Start 10/19/18 at 01:00; Status UNV Albuterol/ Ipratropium (Duoneb) 3 ml Q4H RESP THERAPY PRN HHN SHORTNESS OF BREATH; Start 10/19/18 at 01:00; Status UNV Coded Allergies: Keflex (Verified Allergy, Severe, 10/19/18) Past Surgical History Past Surgical Hx: no surgical history Family History Significant Family History: no pertinent family hx Social History Alcohol Use: occasionally Smoking Status: Never smoker Exam/Review of Systems Vital Signs Vitals Vital Signs Date Temp Pulse Resp B/P (MAP) Pulse Ox O2 O2 Flow FiO2 Time Delivery Rate 10/19/18 103 18 150/73 93 Room Air 00:33 (98) 10/18/18 4.0 22:35 10/18/18 97.9 21:43 Exam Exam General: Patient is currently lying in bed in no acute distress, he is nonlabored breathing HEENT: Atraumatic, normocephalic. The pupils are equal, round and reactive. Extraocular motor are intact Neck: Supple with full range of motion. No rigidity or meningismus Chest: Nontender Lungs: Mild expiratory wheeze of the right lung, nonlabored breathing. Heart: Regular rate rhythm, normal sinus Abdomen: Soft , nontender, nondistended , bowel sounds are present. No guarding no rebound tenderness , No masses or organomegaly. No costovertebral temporal angle mass Extremities: Normal to inspection, no edema no cyanosis Skin: Medial aspect of the left foot third digit cyst/abscess, mild erythema of the toe Neurologic: Normal mental status, speech normal, cranial nerves II through XII are intact, motor and sensory are intact, no focal weakness Additional Comments EKG sinus tachycardia at 109 bpm, normal axis, narrow QRS complex, no concerni ng ST elevations or depressions noted PROCEDURE: DX Chest 1 View CLINICAL INDICATION: Asthma exacerbation TECHNIQUE: AP Portable chest. COMPARISON: 03/2000. FINDINGS: Normal cardiac and mediastinal configuration. Aortic calcified plaque absent. No CHF or hilar enlargement. Peribronchial thickening. IMPRESSION: Left peribronchial thickening. Otherwise negative single view chest x-ray. RPTAT: HLRS Celina Arellano Physician Date Time Electronically viewed and signed by Celina Arellano Physician on 10/18/2018 23:52 RS/ CC: LUIS WATKINS MD [id number] QUIRINO SUN Oct 19, 2018 00:43
[2018-10-19] MEDS ORDERED: ALBUTEROL/IPRATROPIUM (NEB) 3 ML AMP HHN PRN (01:00)
[2018-10-19] MEDS ORDERED: NACL 0.9% 3 ML SYG IV SCH (01:00)
[2018-10-19] MEDS ORDERED: ACETAMINOPHEN 325 MG TAB PO PRN (01:00)
[2018-10-19] MEDS ORDERED: DIPHENHYDRAMINE 50 MG INJ IV PRN (01:00)
[2018-10-19] MEDS ORDERED: BISACODYL (EC) 5 MG TAB PO PRN (01:00)
[2018-10-19] MEDS ORDERED: DOCUSATE SODIUM 100 MG CAP PO PRN (01:00)
[2018-10-19] MEDS ORDERED: ONDANSETRON 4 MG INJ IV PRN (01:00)
--- NOTE | 2018-10-19 04:35 | NUR ---
END OF SHIFT REPORT ADMITTED FOR ANAPHYLAXIS. NO SKIN LESIONS, NO SOB, CHEST PAIN. SINUS RHYTHM ON MONITOR. UNEVENTFUL.
[2018-10-19] MEDS: FAMOTIDINE 20 MG INJ IV SCH ×2 (08:35→20:30)
[2018-10-19] MEDS: CLINDAMYCIN 300 MG CAP PO SCH ×3 (08:35→18:11)
--- NOTE | 2018-10-19 11:24 | PN ---
Date/Time of Note Date/Time of Note DATE: 10/19/18 TIME: 11:21 Assessment/Plan VTE Prophylaxis Risk score (from Nsg)>0 risk: 1 SCD applied (from Nsg): Yes Pharmacological prophylaxis: LMWH Lines/Catheters IV Catheter Type (from Nrsg): Saline Lock Urinary Cath still in place: No Assessment/Plan Hospital Course SUBJECTIVE: Denies any dyspnea at this time. OBJECTIVE: Physical Exam General: Obese, 38 year-old male lying in bed in no apparent distress. HEENT: Normocephalic, atraumatic. Eyes: Anicteric sclerae, conjunctivae clear. ENT: Nasal septum midline, oral mucosa moist. Neck: Short and obese. Respiratory: Bilaterally diminished breath sounds. No use of accessory muscles of respiration. No adventitious breath sounds. Cardiovascular: S1, S2 heard. Regular rate and rhythm. Abdomen: Soft, nontender, and nondistended. Bowel sounds positive in all 4 quadr ants. Genitourinary: Deferred. Extremities: No cyanosis, no clubbing. Left third toe erythema with a blister on the medial side. Peripheral pulses palpable. Neurologic: Cranial nerves II through XII grossly intact. The patient is awake, alert, and oriented. Labs & Vitals per chart ASSESSMENT & PLAN This is a 38-year-old male with comorbidities including obesity and asthma who had a left third toe infection and was taking Keflex. The patient came to the emergency room with sudden onset of dyspnea, generalized body rashes, and itching. The patient was given Decadron, epinephrine, Benadryl, and famotidine with good response. It is unclear whether the patient had an allergic reaction to some food versus Keflex. Of note, the patient took Keflex approximately 3 weeks ago for another left lower extremity infection. The patient denied any history of diabetes. The patient was admitted to inpatient setting for further treatment and evaluation. 1. Allergic reaction. -Resolved with Decadron, epinephrine, Benadryl, and famotidine. -Allergen unclear. Possibly from Keflex. 2. Left foot third digit infection. -Continue clindamycin. -Obtain podiatry evaluation. -Hemoglobin A1c to evaluate for any underlying diabetes. 3. Asthma. -Continue PRN inhaled bronchodilators. 4. Obesity. -BMI more than 37 kg/m. -Weight reduction would be advised. 5. Dyslipidemia. -Elevated triglycerides. -Advise low-cholesterol diet. 6. Fluids, electrolytes, and nutrition. -Low-cholesterol diet. 7. DVT prophylaxis. -Subcutaneous Lovenox. 8. Acute kidney injury. -Resolved. 9. Plan. -Continue antimicrobials -Await podiatry evaluation. The patient was in collaboration with Dr. Vee. Result Diagram: 10/19/18 0542 10/19/18 0542 Results 24hrs Laboratory Tests Test 10/18/18 22:24 10/19/18 05:39 10/19/18 05:42 White Blood Count 14.5 H 18.3 #H Red Blood Count 5.78 5.21 Hemoglobin 17.3 15.7 Hematocrit 50.5 45.7 Mean Corpuscular Volume 87.4 87.7 Mean Corpuscular Hemoglobin 29.9 30.1 Mean Corpuscular Hemoglobin Concent 34.3 34.4 Red Cell Distribution Width 12.1 12.2 Platelet Count 414 321 # Mean Platelet Volume 10.5 H 10.6 H Immature Granulocytes % 0.400 0.500 H Neutrophils % 92.6 H Segmented Neutrophils % (Manual) 46 Lymphocytes % 6.2 L Lymphocytes % (Manual) 40 Reactive Lymphocytes % (Manual) 9 H Monocytes % 0.5 Monocytes % (Manual) 4 Eosinophils % 0.0 Eosinophils % (Manual) 1 Basophils % 0.2 Nucleated Red Blood Cells % 0.0 0.0 Immature Granulocytes # 0.060 H 0.090 H Neutrophils # 17.0 H Lymphocytes (Manual) 5.8 H Lymphocytes # 1.1 Reactive Lymphocytes # 1.3 H Monocytes # 0.1 L Monocytes # (Manual) 0.5 Eosinophils # 0.0 Basophils # 0.0 Nucleated Red Blood Cells # 0.0 Platelet Estimate NORMAL Giant Platelets 1 H Sodium Level 140 139 Potassium Level 4.3 4.4 Chloride Level 109 108 Carbon Dioxide Level 23 22 Anion Gap 8 9 Blood Urea Nitrogen 12 12 Creatinine 1.31 H 1.12 Est Glomerular Filtrat Rate mL/min > 60 > 60 Glucose Level 177 168 Calcium Level 8.1 L 8.7 Troponin I < 0.012 Erythrocyte Sedimentation Rate 1 C-Reactive Protein 0.8 Magnesium Level 2.1 Total Bilirubin 0.2 Direct Bilirubin 0.00 Indirect Bilirubin 0.2 Aspartate Amino Transf (AST/SGOT) 24 Alanine Aminotransferase (ALT/SGPT) 16 Alkaline Phosphatase 75 Total Protein 6.6 Albumin 3.8 Globulin 2.80 Albumin/Globulin Ratio 1.35 Triglycerides Level 171 H Cholesterol Level 163 LDL Cholesterol, Calculated 96 HDL Cholesterol 33 Cholesterol/HDL Ratio 4.9 Thyroid Stimulating Hormone (TSH) 0.547 Exam/Review of Systems Exam Vitals Vital Signs Date Temp Pulse Resp B/P (MAP) Pulse Ox O2 O2 Flow FiO2 Time Delivery Rate 10/19/18 98.2 89 135/70 93 Room Air 11:12 (91) 10/19/18 28 07:34 10/19/18 4.0 01:33 Intake and Output 10/18/18 10/18/18 10/19/18 1414:59 22:59 06:59 IntakeIntake Total 250 ml BalanceBalance 250 ml Results Results 24hrs Laboratory Tests Test 10/18/18 22:24 10/19/18 05:39 10/19/18 05:42 White Blood Count 14.5 H 18.3 #H Red Blood Count 5.78 5.21 Hemoglobin 17.3 15.7 Hematocrit 50.5 45.7 Mean Corpuscular Volume 87.4 87.7 Mean Corpuscular Hemoglobin 29.9 30.1 Mean Corpuscular Hemoglobin Concent 34.3 34.4 Red Cell Distribution Width 12.1 12.2 Platelet Count 414 321 # Mean Platelet Volume 10.5 H 10.6 H Immature Granulocytes % 0.400 0.500 H Neutrophils % 92.6 H Segmented Neutrophils % (Manual) 46 Lymphocytes % 6.2 L Lymphocytes % (Manual) 40 Reactive Lymphocytes % (Manual) 9 H Monocytes % 0.5 Monocytes % (Manual) 4 Eosinophils % 0.0 Eosinophils % (Manual) 1 Basophils % 0.2 Nucleated Red Blood Cells % 0.0 0.0 Immature Granulocytes # 0.060 H 0.090 H Neutrophils # 17.0 H Lymphocytes (Manual) 5.8 H Lymphocytes # 1.1 Reactive Lymphocytes # 1.3 H Monocytes # 0.1 L Monocytes # (Manual) 0.5 Eosinophils # 0.0 Basophils # 0.0 Nucleated Red Blood Cells # 0.0 Platelet Estimate NORMAL Giant Platelets 1 H Sodium Level 140 139 Potassium Level 4.3 4.4 Chloride Level 109 108 Carbon Dioxide Level 23 22 Anion Gap 8 9 Blood Urea Nitrogen 12 12 Creatinine 1.31 H 1.12 Est Glomerular Filtrat Rate mL/min > 60 > 60 Glucose Level 177 168 Calcium Level 8.1 L 8.7 Troponin I < 0.012 Erythrocyte Sedimentation Rate 1 C-Reactive Protein 0.8 Magnesium Level 2.1 Total Bilirubin 0.2 Direct Bilirubin 0.00 Indirect Bilirubin 0.2 Aspartate Amino Transf (AST/SGOT) 24 Alanine Aminotransferase (ALT/SGPT) 16 Alkaline Phosphatase 75 Total Protein 6.6 Albumin 3.8 Globulin 2.80 Albumin/Globulin Ratio 1.35 Triglycerides Level 171 H Cholesterol Level 163 LDL Cholesterol, Calculated 96 HDL Cholesterol 33 Cholesterol/HDL Ratio 4.9 Thyroid Stimulating Hormone (TSH) 0.547 Medications Medication Current Medications Famotidine (Pepcid Iv) 20 mg BID IV Last administered on 10/19/18at 08:35; Admin Dose 20 MG; Start 10/19/18 at 09:00 Diphenhydramine HCl (Benadryl) 50 mg Q6H PRN IV ITCHING; Start 10/19/18 at 01:00 Albuterol/ Ipratropium (Duoneb) 3 ml Q4H RESP THERAPY PRN HHN SHORTNESS OF BREATH; Start 10/19/18 at 01:00 IV Flush (NS 3 ml) 3 ml PER PROTOCOL IV ; Start 10/19/18 at 01:00 Ondansetron HCl (Zofran Inj) 4 mg Q6H PRN IV NAUSEA/VOMITING; Start 10/19/18 at 01:00 Acetaminophen (Tylenol Tab) 650 mg Q6H PRN PO .PAIN 1-3 OR TEMP; Start 10/19/18 at 01:00 Docusate Sodium (Colace) 100 mg Q12H PRN PO .CONSTIPATION; Start 10/19/18 at 01:00 Bisacodyl (Dulcolax) 5 mg DAILY PRN PO .CONSTIPATION; Start 10/19/18 at 01:00 Clindamycin HCl (Cleocin) 300 mg Q6 PO Last administered on 10/19/18at 08:35; Admin Dose 300 MG; Start 10/19/18 at 07:30 SAGE CELAYA NP Oct 19, 2018 11:24
--- NOTE | 2018-10-19 15:07 | NUR ---
_NP notified regarding Urine drug results, no new orders given, will continue to monitor.
--- NOTE | 2018-10-19 18:30 | NUR ---
EOSS: pt resting on bed, VS stable, denies pain, denies SOB. Hourly rounding done per unit's protocol, bed brakes engaged, side rails up, call light within reach, will endorse to cooking chef nurse.
--- NOTE | 2018-10-19 20:28 | NUR ---
PT CLAIMS HE TAKES A CANNBIS-BASED TEA NIGHTLY, PRESCRIBED BY HIS MD FOR THE LAST 10 YEARS FOR HIS BACK PAIN
[2018-10-20] VITALS (9 sets, daily range): BP systolic 101–138; BP diastolic 60–70; PULSE 20–91; RESP 20
[2018-10-20] MEDS: CLINDAMYCIN 300 MG CAP PO SCH ×3 (00:15→12:10)
--- NOTE | 2018-10-20 06:15 | NUR ---
END OF SHIFT REPORT NO UNDUE DEVELOPMENT. NO COMPLAINT. SINUS ON MONITOR. VITALS STABLE.
[2018-10-20] MEDS: FAMOTIDINE 20 MG INJ IV SCH (08:54)
[2018-10-20] MEDS ORDERED: CHOLECALCIFEROL 1,000 UNIT TAB PO SCH (09:00)
[2018-10-20] MEDS ORDERED: ENOXAPARIN 40 MG/0.4 ML SYG SC SCH (09:00)
--- NOTE | 2018-10-20 15:31 | DS ---
Date/Time of Note Date/Time of Note DATE: 10/20/18 TIME: 15:28 Discharge Summary Admission/Discharge Info Admit Date/Time Oct 18, 2018 at 23:49 Discharge Date/Time Patient Condition: Good Procedures X Chest 1 View CLINICAL INDICATION: Asthma exacerbation TECHNIQUE: AP Portable chest. COMPARISON: 03/2000. FINDINGS: Normal cardiac and mediastinal configuration. Aortic calcified plaque absent. No CHF or hilar enlargement. Peribronchial thickening. IMPRESSION: Left peribronchial thickening. Otherwise negative single view chest x-ray. PROCEDURE: XR Foot. CLINICAL INDICATION: Trauma left third finger TECHNIQUE: AP, lateral and oblique views of the left foot was obtained. The images were reviewed on a PACS workstation. COMPARISON: None. FINDINGS: The bones of the foot appear intact, with no evidence of fracture, dislocation, or subluxation. The joint spaces are preserved. Bone mineralization is normal. No significant soft tissue swelling is seen. IMPRESSION: Unremarkable left foot radiographs. .Shahram Cummins MD, MD Date Time Hx of Present Illness 38-year-old gentleman admitted with rash trouble breathing. Hospital Course [id number]--- admitted with shortness of breath rash concern for anaphylactic reaction to Keflex. Patient did have Keflex remaining in his house after using it for a previous infection. He took 4 tablets instead of 2 and felt that maybe he had too much medicine in his system. Denies any need for food allergies. Patient was treated for such rash shortness of breath with steroids Benadryl etc. Presently there is no rash no shortness of breath, stable and fit for discharge. Adverse drug event/ Keflex Nonadherence Chronic asthma? Obesity Metabolic syndrome Dyslipidemia Left second toe blister/infection Home Meds Active Scripts Albuterol Sulfate* (Albuterol Sulfate* Neb) 0.083%-3 Ml Neb, 2.5 MG NEB Q4 PRN for SHORTNESS OF BREATH, #30 EA Prov:NEIL DUNBAR PA-C 10/11/18 Albuterol Sulfate* (Ventolin HFA*) 18 Gm Hfa.aer.ad, 2 PUFF INHALATION Q4H, #1 INHALER Prov:NEIL DUNBAR PA-C 10/11/18 Prednisone* (Prednisone*) 20 Mg Tab, 40 MG PO DAILY for 4 Days, TAB Prov:NEIL DUNBAR PA-C 10/11/18 Ibuprofen* (Motrin*) 600 Mg Tab, 600 MG PO Q6, #30 TAB Prov:HALEY SAUCEDA PA-C 10/02/18 Sulfamethoxazole/Trimethoprim* (Bactrim Ds* Tablet) 1 Each Tablet, 1 TAB PO BID for 7 Days, #14 TAB Prov:HALEY SAUCEDA PA-C 10/02/18 Cephalexin* (Keflex*) 500 Mg Capsule, 500 MG PO QID for 7 Days, CAP Prov:HALEY SAUCEDA PA-C 10/02/18 Prednisone* (Prednisone*) 20 Mg Tab, 40 MG PO DAILY for 4 Days, TAB Prov:ZENAIDA BUCK PA-C 09/14/18 Beclomethasone Dipropionate (Qvar Redihaler (80 MCG)) 10.6 Gm Hfa.aeroba, 10.6 GM IH DAILY, #1 INH Prov:ZENAIDA BUCK PA-C 09/14/18 Albuterol Sulfate* (Proair HFA*) 8.5 Gm Hfa.aer.ad, 2 PUFF INH Q4, #1 INHALER Prov:ZENAIDA BUCK PA-C 09/14/18 Beclomethasone Dipropionate (Qvar Redihaler (80 MCG)) 10.6 Gm Hfa.aeroba, 10.6 GM IH DAILY, #1 INH Prov:NEIL DUNBAR PA-C 07/14/18 Albuterol Sulfate* (Ventolin HFA*) 18 Gm Hfa.aer.ad, 2 PUFF INHALATION Q4H, #1 INHALER Prov:NEIL DUNBAR PA-C 07/14/18 Prednisone* (Prednisone*) 20 Mg Tab, 40 MG PO DAILY for 4 Days, TAB Prov:NEIL DUNBAR PA-C 07/14/18 Prednisone* (Prednisone*) 50 Mg Tablet, 50 MG PO DAILY, #4 TAB Prov:BRIANA VALIENTE DO 03/09/17 Albuterol Sulfate* (Ventolin HFA*) 18 Gm Hfa.aer.ad, 2 PUFF INHALATION Q4H, #1 INHALER Prov:BRIANA VALIENTE DO 03/09/17 Albuterol Sulfate* (Albuterol Sulfate* Neb) 0.083%-3 Ml Neb, 5 MG NEB Q4H, #30 VIAL Prov:BIRANA VALIENTE DO 03/09/17 Prednisone* (Prednisone*) 20 Mg Tab, 60 MG PO DAILY for 4 Days, TAB Prov:ISMAEL MEDINA PA-C 09/15/16 Reported Medications [Prednisone] No Conflict Check 01/13/12 Albuterol Sulfate* (Proair HFA*) 8.5 Gm Hfa.aer.ad 01/07/12 Primary Care Provider Care Physician No Primary Time spent on discharge: > 30 minutes Pending Labs Laboratory Tests Test 10/20/18 05:23 White Blood Count 14.1 10^3/ul (4.8-10.8) Red Blood Count 5.04 10^6/ul (4.70-6.10) Hemoglobin 15.1 g/dl (14.0-18.0) Hematocrit 44.5 % (42.0-52.0) Mean Corpuscular Volume 88.3 fl (82.0-101.0) Mean Corpuscular Hemoglobin 30.0 pg (29.0-33.0) Mean Corpuscular Hemoglobin Concent 33.9 g/dl (32.0-37.0) Red Cell Distribution Width 12.4 % (11.5-14.5) Platelet Count 322 10^3/UL (140-415) Mean Platelet Volume 10.7 fl (7.4-10.4) Immature Granulocytes % 0.700 % (0.001-0.429) Neutrophils % 76.7 % (39.0-77.0) Lymphocytes % 16.4 % (15.0-51.0) Monocytes % 6.0 % (0.0-11.0) Eosinophils % 0.0 % (0.0-7.0) Basophils % 0.2 % (0.0-2.0) Nucleated Red Blood Cells % 0.0 /100WBC (0.0-0.0) Immature Granulocytes # 0.100 10^3/ul (0.0-0.031) Neutrophils # 10.8 10^3/ul (1.6-7.5) Lymphocytes # 2.3 10^3/ul (0.8-2.9) Monocytes # 0.9 10^3/ul (0.3-0.9) Eosinophils # 0.0 10^3/ul (0.0-0.5) Basophils # 0.0 10^3/ul (0.0-0.1) Nucleated Red Blood Cells # 0.0 10^3/ul (0.0-0.0) Sodium Level 142 mmol/L (135-144) Potassium Level 4.0 mmol/L (3.5-5.1) Chloride Level 109 mmol/L (97-110) Carbon Dioxide Level 23 mmol/L (21-31) Anion Gap 10 (5-13) Blood Urea Nitrogen 13 mg/dl (7-20) Creatinine 0.93 mg/dl (0.61-1.24) Est Glomerular Filtrat Rate mL/min > 60 mL/min (>60) Glucose Level 117 mg/dl (70-220) Calcium Level 8.8 mg/dl (8.4-10.2) Phosphorus Level 3.0 mg/dl (2.5-4.9) Magnesium Level 2.1 mg/dl (1.7-2.5) Total Bilirubin 0.3 mg/dl (0.2-1.3) Direct Bilirubin 0.00 mg/dl (0.00-0.20) Indirect Bilirubin 0.3 mg/dl (0-1.1) Aspartate Amino Transf (AST/SGOT) 14 IU/L (15-46) Alanine Aminotransferase (ALT/SGPT) 15 IU/L (13-69) Alkaline Phosphatase 68 IU/L (42-121) Total Protein 6.9 g/dl (6.1-8.1) Albumin 3.9 g/dl (3.3-4.9) Globulin 3.00 g/dl (1.3-3.2) Albumin/Globulin Ratio 1.30 ARMANI JORDAN MD Oct 20, 2018 15:31
--- NOTE | 2018-10-20 15:31 | PDOCDIS ---
Discharge Instructions CONDITION [id number] Patient Condition: [id number] Good HOME CARE INSTRUCTIONS: [id number] Diet Instructions: [id number] Regular ACTIVITY: [id number] Activity Restrictions: [id number] Slowly Increase Activity FOLLOW UP/APPOINTMENTS Follow-up Plan appt primary 1-2wks ARMANI JORDAN MD Oct 20, 2018 15:31
[2018-10-20] MEDS ORDERED: DIPH25CA6 PO (15:33)
--- NOTE | 2018-10-20 18:29 | NUR ---
Discharge Disposition: VSS, AOOx4, ambulatory, no complaints of pain/sob/distress of any kind. Pt's left foot has no significant swelling and pt had no observed issues walking or putting weight no foot. Pt had no observed wound or discharge/signs of infection on left foot as well. Pt initially had orders for podiatry consult and surgical debridement of left foot. Per , pt's health condition stable enough to follow up with outpatient referral to podiatry. CM will follow up via telephone with possible referrals in AM. radiation monitor, IV and ID wristband d/c'ed prior to discharge. RN reviewed all new and continuing prescriptions and discharge instructions with pt at time bedside. Pt verbalized understanding and stated he had no further questions. Pt declined wheelchair escort, was escorted off floor with RN
[2018-10-20] MEDS ORDERED: FAMOTIDINE 20 MG TAB PO SCH (21:00)
--- NOTE | 2018-10-21 10:27 | NUR ---
JULIANNA NOTES: RECEIVED ORDER TO REFER PT TO A [employer] BUT PT IS SELF PAY. PT HAS NO INSURANCE. CALLED TO PT TO THE TEL # ON FACESHEET BUT IT WAS THE WRONG #. CALLED TO PT'S MOTHER ([phone]) BUT THERE WAS NO ANSWER. LEFT A MSG ON VMAIL. PT TO BE INSTRUCTED TO GO TO [facility] ([facility]) TO F/U W/ A [employer]). WILL TRY CONTACTING PT/PT'S MOTHER AT A LATER TIME. JENNY CHAPIN, RNCM [phone]
== END 2018-10-20 18:09 | disposition home or self-care (01) | DRG 918 ==
LOC: E/R 21:36 → TEL 23:49
PROVIDERS: ADMIT Family Medicine; ATTEND Internal Medicine
DX: T36.1X1A Poisoning by cephalosporins and other beta-lactam antibiotics, accidental (unintentional), initial encounter (principal); N17.9 Acute kidney failure, unspecified; E66.9 Obesity, unspecified; Z68.37 Body mass index [BMI] 37.0-37.9, adult; J45.909 Unspecified asthma, uncomplicated; E78.5 Hyperlipidemia, unspecified; L27.0 Generalized skin eruption due to drugs and medicaments taken internally; R06.02 Shortness of breath; E88.81 Metabolic syndrome and other insulin resistance; L08.9 Local infection of the skin and subcutaneous tissue, unspecified
CPT/HCPCS: 71045; 80048; 80053; 80061; 80307; 82306; 82652; 83036; 83735; 84100; 84443; 84484; 85025; 85651; 86140; 93005; 94644; 96372; 96374; 96375; J0171; J1100; J1200; J1650; J7030

== ENCOUNTER 2018-10-25 15:10 | Emergency (ER) | payer SELFPAY ==
[~2018-10-25] VITALS: Ht 172.7 cm; Wt 113.0 kg
[~2018-10-25 15:10] MED LIST changes: -CEPH-443 PO; +DIPH25CA6 PO; -PREDNISONE
[2018-10-25 15:13] VITALS: BP 162/85; PULSE 102; RESP 18; Ht 172.7 cm; Wt 113.0 kg
--- NOTE | 2018-10-25 16:57 | ERD ---
ER Documentation Chief Complaint Chief Complaint NEEDS MED REFILL ON INHALER HPI 38-year-old male, with history of intermittent asthma, presents to the emergency department, requesting a refill for pro-air. He currently denies fevers, no cough, no active wheezing. ROS All systems reviewed and are negative except as per history of present illness. Medications Home Meds Active Scripts Albuterol Sulfate* (Proair HFA*) 8.5 Gm Hfa.aer.ad, 2 PUFF INH Q4H PRN for WHEEZING AND SOB, #1 INHALER 2 Refills Prov:NELLY ZAMUDIO MD 10/25/18 Diphenhydramine Hcl (Benadryl) 25 Mg Cap, 25 MG PO Q6 for rash for 5 Days, CAP Prov:ARMANI JORDAN MD 10/20/18 Albuterol Sulfate* (Albuterol Sulfate* Neb) 0.083%-3 Ml Neb, 2.5 MG NEB Q4 PRN for SHORTNESS OF BREATH, #30 EA Prov:NEIL DUNBAR PA-C 10/11/18 Albuterol Sulfate* (Ventolin HFA*) 18 Gm Hfa.aer.ad, 2 PUFF INHALATION Q4H, #1 INHALER Prov:NEIL DUNBAR PA-C 10/11/18 Prednisone* (Prednisone*) 20 Mg Tab, 40 MG PO DAILY for 4 Days, TAB Prov:NEIL DUNBAR PA-C 10/11/18 Ibuprofen* (Motrin*) 600 Mg Tab, 600 MG PO Q6, #30 TAB Prov:HALEY SAUCEDA PA-C 10/02/18 Sulfamethoxazole/Trimethoprim* (Bactrim Ds* Tablet) 1 Each Tablet, 1 TAB PO BID for 7 Days, #14 TAB Prov:HALEY SAUCEDA PA-C 10/02/18 Prednisone* (Prednisone*) 20 Mg Tab, 40 MG PO DAILY for 4 Days, TAB Prov:ZENAIDA BUCK PA-C 09/14/18 Beclomethasone Dipropionate (Qvar Redihaler (80 MCG)) 10.6 Gm Hfa.aeroba, 10.6 GM IH DAILY, #1 INH Prov:ZENAIDA BUCK PA-C 09/14/18 Albuterol Sulfate* (Proair HFA*) 8.5 Gm Hfa.aer.ad, 2 PUFF INH Q4, #1 INHALER Prov:ZENAIDA BUCK PA-C 09/14/18 Beclomethasone Dipropionate (Qvar Redihaler (80 MCG)) 10.6 Gm Hfa.aeroba, 10.6 GM IH DAILY, #1 INH Prov:NEIL DUNBAR PA-C 07/14/18 Albuterol Sulfate* (Ventolin HFA*) 18 Gm Hfa.aer.ad, 2 PUFF INHALATION Q4H, #1 INHALER Prov:NEIL DUNBAR PA-C 07/14/18 Prednisone* (Prednisone*) 20 Mg Tab, 40 MG PO DAILY for 4 Days, TAB Prov:NEIL DUNBAR PA-C 07/14/18 Prednisone* (Prednisone*) 50 Mg Tablet, 50 MG PO DAILY, #4 TAB Prov:BRIANA VALIENTE DO 03/09/17 Albuterol Sulfate* (Ventolin HFA*) 18 Gm Hfa.aer.ad, 2 PUFF INHALATION Q4H, #1 INHALER Prov:BRIANA VALIENTE DO 03/09/17 Albuterol Sulfate* (Albuterol Sulfate* Neb) 0.083%-3 Ml Neb, 5 MG NEB Q4H, #30 VIAL Prov:BRIANA VALIENTE DO 03/09/17 Prednisone* (Prednisone*) 20 Mg Tab, 60 MG PO DAILY for 4 Days, TAB Prov:ISMAEL MEDINA PA-C 09/15/16 Reported Medications Albuterol Sulfate* (Proair HFA*) 8.5 Gm Hfa.aer.ad 01/07/12 Discontinued Reported Medications [Prednisone] No Conflict Check 01/13/12 Discontinued Scripts Cephalexin* (Keflex*) 500 Mg Capsule, 500 MG PO QID for 7 Days, CAP Prov:HALEY SAUCEDA PA-C 10/02/18 Allergies Allergies: Coded Allergies: cephalexin (Verified Allergy, Severe, 10/19/18) PMhx/Soc History of Surgery: No Anesthesia Reaction: No Hx Neurological Disorder: No Hx Respiratory Disorders: Yes (BRONCHIAL ASTHMA) Hx Cardiac Disorders: No Hx Psychiatric Problems: No Hx Miscellaneous Medical Probl: No Hx Alcohol Use: Yes (SOCIAL DRINKING, OCCASIONAL) Hx Substance Use: No Hx Tobacco Use: No FmHx Family History: No diabetes, No coronary disease Physical Exam Vitals Vital Signs Date Temp Pulse Resp B/P (MAP) Pulse Ox O2 O2 Flow FiO2 Time Delivery Rate 10/25/18 97.8 102 18 162/85 96 15:13 (110) Physical Exam Const: No acute distress Head: Atraumatic Eyes: Normal Conjunctiva ENT: Normal External Ears, Nose and Mouth. Neck: Full range of motion. No meningismus. Resp: Clear to auscultation bilaterally Cardio: Regular rate and rhythm, no murmurs Abd: Soft, non tender, non distended. Normal bowel sounds Skin: No petechiae or rashes Back: No midline or flank tenderness Ext: No cyanosis, or edema Neur: Awake and alert Psych: Normal Mood and Affect Procedures/MDM Differential diagnosis include but not limited to: Respiratory infection bacterial/viral/fungal. Asthma/COPD, pneumonitis, allergies, GERD. Less likely foreign body aspiration, cardiac related, aspiration pneumonia, malignancy. No clinical evidence of acute asthma exacerbation. During the ED course the patient remained stable. Clinical impression discussed with the patient who agrees with management. The patient is stable to be treated outpatient and will be discharged home. Some side effects of prescribed medications (headache, rash, nausea, vomiting, diarrhea, drowsiness, habituation, bleeding, hypertension, interactions with other medications) were reviewed. The patient was instructed to follow up with the primary care provider in the next 48h. If symptoms persist, worsen or new symptoms develop, then patient should return to the ED immediately. Disclaimer: Inadvertent spelling and grammatical errors are likely due to EHR/dictation software use and do not reflect on the overall quality of patient care. Also, please note that the electronic time recorded on this note does not necessarily reflect the actual time of the patient encounter. Departure Diagnosis: Primary Impression: Encounter for medication refill Additional Impression: Asthma Condition: Stable Additional Instructions: Thank you very much for allowing us to participate in your care. Your health and safety is our top priority at [facility]. Call your primary care doctor TOMORROW for an appointment during the next 2-4 days and bring all the information and medications prescribed. Have prescriptions filled and follow precisely the directions on the label. If the symptoms get worse and your provider is unavailable, return to the Emergency Department immediately. OJEDA-HONG,NELLY MD Oct 25, 2018 16:57
[2018-10-25] MEDS ORDERED: ALBU8.5H8 INH (16:58)
== END 2018-10-25 17:33 | disposition home or self-care (01) ==
LOC: FTE 15:10
DX: Z76.0 Encounter for issue of repeat prescription (principal); J45.909 Unspecified asthma, uncomplicated
CPT/HCPCS: 99281

== ENCOUNTER 2018-11-04 07:57 | Emergency (ER) | payer SELFPAY ==
[~2018-11-04] VITALS: Ht 172.7 cm; Wt 113.6 kg
[2018-11-04 08:08] VITALS: Ht 172.7 cm; Wt 113.6 kg
[2018-11-04] MEDS ORDERED: predniSONE 20 MG TAB PO ONE (09:00)
[2018-11-04] MEDS ORDERED: ALBUTEROL 0.083% (NEB) 2.5 MG/3 ML AMP HHN STA (09:00)
[2018-11-04] MEDS ORDERED: TRIMETHOPRIM/SULFAMETHOX (DS) TAB PO ONE (09:30)
[2018-11-04] MEDS ORDERED: SULF1TAB31 PO (09:39)
[2018-11-04] MEDS ORDERED: ALBU18HF INHALATION (09:39)
[2018-11-04] MEDS ORDERED: CLOT30CR24 TOP (09:39)
[2018-11-04] MEDS ORDERED: PRED20TA PO (09:39)
--- NOTE | 2018-11-04 09:44 | ERD ---
ER Documentation Chief Complaint Chief Complaint PT C/O WHEEZING, SOB SINCE LAST NIGHT, HX OF ASTHMA. C/O LEFT TOE REDNESS. HPI 38-year-old male presents with wheezing since yesterday. History of asthma. He is out of his albuterol. He also has some redness and pain in the left fourth webspace left second webspace of his left foot. He has a history of recurrent infections of his left foot. He believes may be due to his shoes as he walks a lot and has sweaty feet. Denies fevers, vomiting, chest pain, abdominal pain. He was admitted 1 month ago and his previous infection responded well to Bactrim. He was admitted for possible anaphylaxis for reaction to Keflex. ROS All systems reviewed and are negative except as per history of present illness. Medications Home Meds Active Scripts Albuterol Sulfate* (Ventolin HFA*) 18 Gm Hfa.aer.ad, 2 PUFF INHALATION Q4H, #1 INHALER Prov:OPAL VERA MD 11/04/18 Prednisone* (Prednisone*) 20 Mg Tab, 60 MG PO DAILY for 4 Days, TAB Start November 05, 2018 Prov:OPAL VERA MD 11/04/18 Clotrimazole* (Clotrimazole* AF) 1% - 30 Gm Cream.gm., 1 APPLIC TOP BID for 10 Days, TUB Prov:OPAL VERA MD 11/04/18 Sulfamethoxazole/Trimethoprim* (Bactrim Ds* Tablet) 1 Each Tablet, 1 TAB PO BID for 7 Days, #14 TAB Prov:OPAL VERA MD 11/04/18 Albuterol Sulfate* (Proair HFA*) 8.5 Gm Hfa.aer.ad, 2 PUFF INH Q4H PRN for WHEEZING AND SOB, #1 INHALER 2 Refills Prov:NELLY ZAMUDIO MD 10/25/18 Diphenhydramine Hcl (Benadryl) 25 Mg Cap, 25 MG PO Q6 for rash for 5 Days, CAP Prov:ARMANI JORDAN MD 10/20/18 Albuterol Sulfate* (Albuterol Sulfate* Neb) 0.083%-3 Ml Neb, 2.5 MG NEB Q4 PRN for SHORTNESS OF BREATH, #30 EA Prov:NEIL DUNBAR PA-C 10/11/18 Albuterol Sulfate* (Ventolin HFA*) 18 Gm Hfa.aer.ad, 2 PUFF INHALATION Q4H, #1 INHALER Prov:NEIL DUNBAR PA-C 10/11/18 Prednisone* (Prednisone*) 20 Mg Tab, 40 MG PO DAILY for 4 Days, TAB Prov:NEIL DUNBAR PA-C 10/11/18 Ibuprofen* (Motrin*) 600 Mg Tab, 600 MG PO Q6, #30 TAB Prov:HALEY SAUCEDA PA-C 10/02/18 Sulfamethoxazole/Trimethoprim* (Bactrim Ds* Tablet) 1 Each Tablet, 1 TAB PO BID for 7 Days, #14 TAB Prov:HALEY SAUCEDA PA-C 10/02/18 Prednisone* (Prednisone*) 20 Mg Tab, 40 MG PO DAILY for 4 Days, TAB Prov:ZENAIDA BUCK PA-C 09/14/18 Beclomethasone Dipropionate (Qvar Redihaler (80 MCG)) 10.6 Gm Hfa.aeroba, 10.6 GM IH DAILY, #1 INH Prov:ZENAIDA BUCK PA-C 09/14/18 Albuterol Sulfate* (Proair HFA*) 8.5 Gm Hfa.aer.ad, 2 PUFF INH Q4, #1 INHALER Prov:ZENAIDA BUCK PA-C 09/14/18 Beclomethasone Dipropionate (Qvar Redihaler (80 MCG)) 10.6 Gm Hfa.aeroba, 10.6 GM IH DAILY, #1 INH Prov:NEIL DUNBAR PA-C 07/14/18 Albuterol Sulfate* (Ventolin HFA*) 18 Gm Hfa.aer.ad, 2 PUFF INHALATION Q4H, #1 INHALER Prov:NEIL DUNBAR PA-C 07/14/18 Prednisone* (Prednisone*) 20 Mg Tab, 40 MG PO DAILY for 4 Days, TAB Prov:NEIL DUNBAR PA-C 07/14/18 Prednisone* (Prednisone*) 50 Mg Tablet, 50 MG PO DAILY, #4 TAB Prov:BRIANA VALIENTE DO 03/09/17 Albuterol Sulfate* (Ventolin HFA*) 18 Gm Hfa.aer.ad, 2 PUFF INHALATION Q4H, #1 INHALER Prov:BRIANA VALIENTE DO 03/09/17 Albuterol Sulfate* (Albuterol Sulfate* Neb) 0.083%-3 Ml Neb, 5 MG NEB Q4H, #30 VIAL Prov:BRIANA VALIENTE DO 03/09/17 Prednisone* (Prednisone*) 20 Mg Tab, 60 MG PO DAILY for 4 Days, TAB Prov:ISMAEL MEDINA PA-C 09/15/16 Reported Medications Albuterol Sulfate* (Proair HFA*) 8.5 Gm Hfa.aer.ad 01/07/12 Allergies Allergies: Coded Allergies: cephalexin (Verified Allergy, Severe, 10/19/18) PMhx/Soc History of Surgery: No Anesthesia Reaction: No Hx Neurological Disorder: No Hx Respiratory Disorders: Yes (BRONCHIAL ASTHMA) Hx Cardiac Disorders: No Hx Psychiatric Problems: No Hx Miscellaneous Medical Probl: No Hx Alcohol Use: Yes (SOCIAL DRINKING, OCCASIONAL) Hx Substance Use: No Hx Tobacco Use: No FmHx Family History: No diabetes, No coronary disease, No other Physical Exam Vitals Vital Signs Date Temp Pulse Resp B/P (MAP) Pulse Ox O2 O2 Flow FiO2 Time Delivery Rate 11/04/18 85 18 96 21 09:19 11/04/18 98.3 88 18 123/58 96 08:08 (79) Physical Exam Const: No acute distress and speaking complete sentences. Head: Atraumatic Eyes: Normal Conjunctiva ENT: Normal External Ears, Nose and Mouth. TMs and oropharynx normal. Neck: Full range of motion. No meningismus. Resp: Clear to auscultation bilaterally. Scattered wheezing without rales or retractions. Cardio: Regular rate and rhythm, no murmurs Abd: Soft, non tender, non distended. Normal bowel sounds Skin: No petechiae or rashes Back: No midline or flank tenderness Ext: No cyanosis, or edema. There is some maceration and superficial blister with surrounding redness of the left fourth and second webspace. No significant erythema or induration of the foot. Left lower extremity is neurovascular i ntact without evidence of ischemia, bleeding or discharge. Neur: Awake and alert Psych: Normal Mood and Affect Results 24 hrs Current Medications Medications Dose Sig/Sylvie Start Time Status Last (Trade) Ordered Route PRN Stop Time Admin Dose Reason Admin Prednisone 60 mg ONCE ONCE 11/04/18 DC 11/04/18 (Prednisone) PO 09:00 09:18 11/04/18 09:01 Albuterol 5 mg ONCE STAT 11/04/18 DC 11/04/18 (Proventil HHN 09:00 09:17 0.083% (Neb)) 11/04/18 09:01 1 tab ONCE ONCE 11/04/18 DC 11/04/18 Trimethoprim/ PO 09:30 09:17 11/04/18 09:31 Sulfamethoxaz ole (Bactrim (Ds)) Procedures/MDM Patient presents with infection on web spaces of his left foot possibly second maegan to tinea pedis. Current signs or symptoms do not suggest osteomyelitis, sepsis, significant cellulitis. Will treat with Bactrim for this. He was also given albuterol treatment and prednisone 60 mg by mouth for what appears to be an uncomplicated asthma exacerbation without ends of hypoxemia, respiratory distress, signs of pneumonia. We will treat with refill of Ventolin, prednisone for his asthma symptoms. He is advised to return for worsening redness, fevers, new worsening symptoms related to his foot otherwise worsening shortness of breath. Patient was advised to use foot powder or frequent change of socks to prevent infections of his left foot. The patient was stable with no new complaints during the ER course. Clinically, there is no current evidence to suggest meningitis, sepsis, acute abdomen, pneumonia, stroke, acute coronary syndrome, pulmonary embolism, aortic dissection or any other emergent condition appearing to require further evaluation or hospitalization. Patient counseled regarding my diagnostic impression and care plan. Prior to discharge all questions answered. Pt agrees with treatment plan and understands strict return precautions. Pt is instructed to follow up with primary care provider within 24- 48 hours. Precautionary instructions provided including instructions to return to the ER if not improving or for any worsening or changing symptoms or concerns . Departure Diagnosis: Primary Impression: Wheezing Additional Impression: Blister of foot, left Encounter type: initial encounter Qualified Codes: S90.822A - Blister (nonthermal), left foot, initial encounter Condition: Stable Patient Instructions: Asthma, Cellulitis Referrals: NO PRIMARY,CARE PHYSICIAN (PCP) Additional Instructions: Recommend foot powder and frequent change of socks. Recheck for new or worsening symptoms with primary care doctor. OPAL VERA MD Nov 04, 2018 09:44
[2018-11-04 10:35] VITALS: BP 125/63; PULSE 84; RESP 18
== END 2018-11-04 10:35 | disposition home or self-care (01) ==
LOC: FTE 07:57
DX: J45.901 Unspecified asthma with (acute) exacerbation (principal); S90.822A Blister (nonthermal), left foot, initial encounter; X58.XXXA Exposure to other specified factors, initial encounter; Y92.9 Unspecified place or not applicable
CPT/HCPCS: 94664; 99283; J7512

== ENCOUNTER 2019-01-06 06:55 | Emergency (ER) | payer MEDICAID ==
[~2019-01-06] VITALS: Ht 175.3 cm; Wt 112.2 kg
[~2019-01-06 06:55] MED LIST changes: +CLOT30CR24 TOP
[2019-01-06 06:59] VITALS: BP 158/90; PULSE 90; RESP 18; Ht 175.3 cm; Wt 112.2 kg
[2019-01-06] MEDS ORDERED: PSEU-79 PO (07:10)
[2019-01-06] MEDS ORDERED: MED4DP PO (07:10)
[2019-01-06] MEDS ORDERED: NAPR-985 PO (07:10)
[2019-01-06] MEDS ORDERED: ALBU8.5H8 INH (07:29)
--- NOTE | 2019-01-06 15:47 | ERD ---
ER Documentation Chief Complaint Chief Complaint pt has bi-lateral ear pain 7/10 x 2 days with intermittant fever HPI 38-year-old male presenting with bilateral ear pain and congestion. Patient denies any fevers. Has been taking antibiotics with no alleviation. Patient is asthmatic. Allergy to Keflex. Surgical history denies. Social history denies ROS All systems reviewed and are negative except as per history of present illness. Medications Home Meds Active Scripts Albuterol Sulfate* (Proair HFA*) 8.5 Gm Hfa.aer.ad, 2 PUFF INH Q4, #1 INHALER Prov:ADITI MAYORGA PA-C 01/06/19 Methylprednisolone* (Medrol* DOSE PACK) 4 Mg/Dose-Pack Tab.ds.pk, 4 MG PO . DIRECTED, #1 PACKET Prov:ADITI MAYORGA PA-C 01/06/19 Naproxen* (Naprosyn*) 500 Mg Tablet, 500 MG PO BID PRN for PAIN AND/OR INFLAMMATION, #30 TAB Prov:ADITI MAYORGA PA-C 01/06/19 Pseudoephedrine Hcl* (Suphedrin*) 30 Mg Tablet, 30 MG PO Q6 PRN for CONGESTION, #30 TAB Prov:ADITI MAYORGA PA-C 01/06/19 Albuterol Sulfate* (Ventolin HFA*) 18 Gm Hfa.aer.ad, 2 PUFF INHALATION Q4H, #1 INHALER Prov:OPAL VERA MD 11/04/18 Prednisone* (Prednisone*) 20 Mg Tab, 60 MG PO DAILY for 4 Days, TAB Start November 05, 2018 Prov:OPAL VERA MD 11/04/18 Clotrimazole* (Clotrimazole* AF) 1% - 30 Gm Cream.gm., 1 APPLIC TOP BID for 10 Days, TUB Prov:OPAL VERA MD 11/04/18 Sulfamethoxazole/Trimethoprim* (Bactrim Ds* Tablet) 1 Each Tablet, 1 TAB PO BID for 7 Days, #14 TAB Prov:OAPL VERA MD 11/04/18 Albuterol Sulfate* (Proair HFA*) 8.5 Gm Hfa.aer.ad, 2 PUFF INH Q4H PRN for WHEEZING AND SOB, #1 INHALER 2 Refills Prov:NELLY ZAMUDIO MD 10/25/18 Diphenhydramine Hcl (Benadryl) 25 Mg Cap, 25 MG PO Q6 for rash for 5 Days, CAP Prov:ARMANI JORDAN MD 10/20/18 Albuterol Sulfate* (Albuterol Sulfate* Neb) 0.083%-3 Ml Neb, 2.5 MG NEB Q4 PRN for SHORTNESS OF BREATH, #30 EA Prov:NEIL DUNBAR PA-C 10/11/18 Albuterol Sulfate* (Ventolin HFA*) 18 Gm Hfa.aer.ad, 2 PUFF INHALATION Q4H, #1 INHALER Prov:NEIL DUNBAR PA-C 10/11/18 Prednisone* (Prednisone*) 20 Mg Tab, 40 MG PO DAILY for 4 Days, TAB Prov:NEIL DUNBAR PA-C 10/11/18 Ibuprofen* (Motrin*) 600 Mg Tab, 600 MG PO Q6, #30 TAB Prov:HALEY SAUCEDA PA-C 10/02/18 Sulfamethoxazole/Trimethoprim* (Bactrim Ds* Tablet) 1 Each Tablet, 1 TAB PO BID for 7 Days, #14 TAB Prov:HALEY SAUCEDA PA-C 10/02/18 Prednisone* (Prednisone*) 20 Mg Tab, 40 MG PO DAILY for 4 Days, TAB Prov:ZENAIDA BUCK PA-C 09/14/18 Beclomethasone Dipropionate (Qvar Redihaler (80 MCG)) 10.6 Gm Hfa.aeroba, 10.6 GM IH DAILY, #1 INH Prov:ZENAIDA BUCK PA-C 09/14/18 Albuterol Sulfate* (Proair HFA*) 8.5 Gm Hfa.aer.ad, 2 PUFF INH Q4, #1 INHALER Prov:ZENAIDA BUCK PA-C 09/14/18 Beclomethasone Dipropionate (Qvar Redihaler (80 MCG)) 10.6 Gm Hfa.aeroba, 10.6 GM IH DAILY, #1 INH Prov:NEIL DUNBAR PA-C 11/5/18 Albuterol Sulfate* (Ventolin HFA*) 18 Gm Hfa.aer.ad, 2 PUFF INHALATION Q4H, #1 INHALER Prov:NEIL DUNBAR PA-C 07/14/18 Prednisone* (Prednisone*) 20 Mg Tab, 40 MG PO DAILY for 4 Days, TAB Prov:NEIL DUNBAR PA-C 07/14/18 Prednisone* (Prednisone*) 50 Mg Tablet, 50 MG PO DAILY, #4 TAB Prov:BRIANA VALIENTE 03/09/17 Albuterol Sulfate* (Ventolin HFA*) 18 Gm Hfa.aer.ad, 2 PUFF INHALATION Q4H, #1 INHALER Prov:BRIANA VALIENTE DO 03/09/17 Albuterol Sulfate* (Albuterol Sulfate* Neb) 0.083%-3 Ml Neb, 5 MG NEB Q4H, #30 VIAL Prov:BRIANA VALIENTE DO 03/09/17 Prednisone* (Prednisone*) 20 Mg Tab, 60 MG PO DAILY for 4 Days, TAB Prov:ISMAEL MEDINA PA-C 09/15/16 Reported Medications Albuterol Sulfate* (Proair HFA*) 8.5 Gm Hfa.aer.ad 01/07/12 Allergies Allergies: Coded Allergies: cephalexin (Verified Allergy, Severe, 10/19/18) PMhx/Soc History of Surgery: No Anesthesia Reaction: No Hx Neurological Disorder: No Hx Respiratory Disorders: Yes (BRONCHIAL ASTHMA) Hx Cardiac Disorders: No Hx Psychiatric Problems: No Hx Miscellaneous Medical Probl: No Hx Alcohol Use: Yes (SOCIAL DRINKING, OCCASIONAL) Hx Substance Use: No Hx Tobacco Use: No Smoking Status: Never smoker FmHx Family History: No diabetes, No coronary disease, No other Physical Exam Vitals Vital Signs Date Temp Pulse Resp B/P (MAP) Pulse Ox O2 O2 Flow FiO2 Time Delivery Rate 01/06/19 98.6 90 18 158/90 96 06:59 (112) Physical Exam GENERAL: The patient is well-appearing, well-nourished, in no acute distress HEENT: Atraumatic. Conjunctivae are pink. Pupils equal, round, and reactive to light. There is no scleral icterus. Tympanic membranes clear bilaterally. Oropharynx clear. NECK: C-spine is soft and supple. There is no meningismus. There is no cervical lymphadenopathy. CHEST: Clear to auscultation bilaterally. There are no rales, wheezes or rhonchi. HEART: Regular rate and rhythm. No murmurs, clicks, rubs or gallops Procedures/MDM MDM: 38-year-old female presenting with viral sinusitis. I do not feel patient should need continued antibiotics. Patient is discharged with supportive medications and decongestants. I have low suspicion for meningitis or sepsis. Patient is discharged with strict ER precautions and told to follow-up with primary care within 1 to 2 days for close evaluation. Patient is told if sympto ms change or worsen to return immediately to the ER. All questions answered at discharge Departure Diagnosis: Primary Impression: Eustachian tube dysfunction Condition: Stable Patient Instructions: Sinusitis, No Abx Referrals: [facility] YOU HAVE RECEIVED A MEDICAL SCREENING EXAM AND THE RESULTS INDICATE THAT YOU DO NOT HAVE A CONDITION THAT REQUIRES URGENT TREATMENT IN THE EMERGENCY DEPARTMENT. FURTHER EVALUATION AND TREATMENT OF YOUR CONDITION CAN WAIT UNTIL YOU ARE SEEN IN YOUR DOCTORS OFFICE WITHIN THE NEXT 1-2 DAYS. IT IS YOUR RESPONSIBILITY TO MAKE AN APPOINTMENT FOR FOLOW-UP CARE. IF YOU HAVE A PRIMARY DOCTOR --you should call your primary doctor and schedule an appointment IF YOU DO NOT HAVE A PRIMARY DOCTOR YOU CAN CALL OUR PHYSICIAN REFERRAL HOTLINE AT IF YOU CAN NOT AFFORD TO SEE A PHYSICIAN YOU CAN CHOSE FROM THE FOLLOWING [facility] [id number] [facility]. [facility] [address] [facility] [facility] [address] [facility] [facility] [address] [facility] [facility] [address] [facility]. [facility]. [address] Additional Instructions: FOLLOW UP WITH YOUR PRIMARY CARE PHYSICIAN TOMORROW.Return to this facility if you are not improving as expected. ADITI MAYORGA PA-C Jan 06, 2019 15:47
== END 2019-01-06 07:30 | disposition home or self-care (01) ==
LOC: FTE 06:55
DX: H69.80 Other specified disorders of Eustachian tube, unspecified ear (principal); J45.909 Unspecified asthma, uncomplicated
CPT/HCPCS: 99283

== ENCOUNTER 2019-01-13 09:42 | Emergency (ER) | payer MEDICAID ==
[~2019-01-13] VITALS: Ht 175.3 cm; Wt 107.0 kg
[~2019-01-13 09:42] MED LIST changes: +MED4DP PO; +NAPR-985 PO; +PSEU-79 PO
[2019-01-13 09:49] VITALS: Ht 175.3 cm; Wt 107.0 kg
--- NOTE | 2019-01-13 12:46 | ERD ---
ER Documentation Chief Complaint Chief Complaint PSYCHOLOGICAL EVALUATION - " I NEED PSYCHOLOGICAL HELP, I DONT FEEL SAFE" HPI This is a 38-year-old male with past medical history of depression. The patient indicates that for the past several days he has been having suicidal thoughts and ideations. He stated he attempted to commit suicide by strangling himself. He stated the rope broke and therefore he was unsuccessful. He admits to illicit drug use and states he was on amphetamines when this occurred. Indicates he wants help and therefore came to the emergency department to be further evaluated. He denies any neck pain. He denied any loss of consciousness with during this attempted circulation. He has no headache. He has no chest pain. He has no shortness of breath. ROS All systems reviewed and are negative except as per history of present illness. Medications Home Meds Active Scripts Albuterol Sulfate* (Proair HFA*) 8.5 Gm Hfa.aer.ad, 2 PUFF INH Q4, #1 INHALER Prov:ADITI MAYORGA PA-C 01/06/19 Methylprednisolone* (Medrol* DOSE PACK) 4 Mg/Dose-Pack Tab.ds.pk, 4 MG PO . DIRECTED, #1 PACKET Prov:ADITI MAYORGA PA-C 01/06/19 Naproxen* (Naprosyn*) 500 Mg Tablet, 500 MG PO BID PRN for PAIN AND/OR INFLAMMATION, #30 TAB Prov:ADITI MAYORGA PA-C 01/06/19 Pseudoephedrine Hcl* (Suphedrin*) 30 Mg Tablet, 30 MG PO Q6 PRN for CONGESTION, #30 TAB Prov:ADITI MAYORGA PA-C 01/06/19 Discontinued Reported Medications Albuterol Sulfate* (Proair HFA*) 8.5 Gm Hfa.aer.ad 01/07/12 Discontinued Scripts Albuterol Sulfate* (Ventolin HFA*) 18 Gm Hfa.aer.ad, 2 PUFF INHALATION Q4H, #1 INHALER Prov:OPAL VERA MD 11/04/18 Prednisone* (Prednisone*) 20 Mg Tab, 60 MG PO DAILY for 4 Days, TAB Start November 05, 2018 Prov:OPAL VERA MD 11/04/18 Clotrimazole* (Clotrimazole* AF) 1% - 30 Gm Cream.gm., 1 APPLIC TOP BID for 10 Days, TUB Prov:OPAL VERA MD 11/04/18 Sulfamethoxazole/Trimethoprim* (Bactrim Ds* Tablet) 1 Each Tablet, 1 TAB PO BID for 7 Days, #14 TAB Prov:OPAL VERA MD 11/04/18 Albuterol Sulfate* (Proair HFA*) 8.5 Gm Hfa.aer.ad, 2 PUFF INH Q4H PRN for WHEEZING AND SOB, #1 INHALER 2 Refills Prov:NELLY ZAMUDIO MD 10/25/18 Diphenhydramine Hcl (Benadryl) 25 Mg Cap, 25 MG PO Q6 for rash for 5 Days, CAP Prov:ARMANI JORDAN MD 10/20/18 Albuterol Sulfate* (Albuterol Sulfate* Neb) 0.083%-3 Ml Neb, 2.5 MG NEB Q4 PRN for SHORTNESS OF BREATH, #30 EA Prov:NEIL DUNBAR PA-C 10/11/18 Albuterol Sulfate* (Ventolin HFA*) 18 Gm Hfa.aer.ad, 2 PUFF INHALATION Q4H, #1 INHALER Prov:NEIL DUNBAR PA-C 10/11/18 Prednisone* (Prednisone*) 20 Mg Tab, 40 MG PO DAILY for 4 Days, TAB Prov:NEIL DUNBAR PA-C 10/11/18 Ibuprofen* (Motrin*) 600 Mg Tab, 600 MG PO Q6, #30 TAB Prov:HALEY SAUCEDA PA-C 10/02/18 Sulfamethoxazole/Trimethoprim* (Bactrim Ds* Tablet) 1 Each Tablet, 1 TAB PO BID for 7 Days, #14 TAB Prov:HALEY SAUCEDA PA-C 10/02/18 Prednisone* (Prednisone*) 20 Mg Tab, 40 MG PO DAILY for 4 Days, TAB Prov:ZENAIDA BUCK PA-C 09/14/18 Beclomethasone Dipropionate (Qvar Redihaler (80 MCG)) 10.6 Gm Hfa.aeroba, 10.6 GM IH DAILY, #1 INH Prov:ZENAIDA BUCK PA-C 09/14/18 Albuterol Sulfate* (Proair HFA*) 8.5 Gm Hfa.aer.ad, 2 PUFF INH Q4, #1 INHALER Prov:ZENAIDA BUCK PA-C 09/14/18 Beclomethasone Dipropionate (Qvar Redihaler (80 MCG)) 10.6 Gm Hfa.aeroba, 10.6 GM IH DAILY, #1 INH Prov:NEIL DUNBAR PA-C 07/14/18 Albuterol Sulfate* (Ventolin HFA*) 18 Gm Hfa.aer.ad, 2 PUFF INHALATION Q4H, #1 INHALER Prov:NEIL DUNBAR PA-C 07/14/18 Prednisone* (Prednisone*) 20 Mg Tab, 40 MG PO DAILY for 4 Days, TAB Prov:NEIL DUNBAR PA-C 07/14/18 Prednisone* (Prednisone*) 50 Mg Tablet, 50 MG PO DAILY, #4 TAB Prov:BRIANA VALIENTE DO 03/09/17 Albuterol Sulfate* (Ventolin HFA*) 18 Gm Hfa.aer.ad, 2 PUFF INHALATION Q4H, #1 INHALER Prov:BRIANA VALIENTE DO 03/09/17 Albuterol Sulfate* (Albuterol Sulfate* Neb) 0.083%-3 Ml Neb, 5 MG NEB Q4H, #30 VIAL Prov:BRIANA VALIENTE DO 03/09/17 Prednisone* (Prednisone*) 20 Mg Tab, 60 MG PO DAILY for 4 Days, TAB Prov:ISMAEL MEDINA PA-C 09/15/16 Allergies Allergies: Coded Allergies: cephalexin (Verified Allergy, Severe, 01/13/19) PMhx/Soc History of Surgery: No Anesthesia Reaction: No Hx Neurological Disorder: No Hx Respiratory Disorders: Yes (BRONCHIAL ASTHMA) Hx Cardiac Disorders: No Hx Psychiatric Problems: Yes (SI ATTEMPT IN THE PAST) Hx Miscellaneous Medical Probl: No Hx Alcohol Use: Yes (SOCIAL DRINKING, OCCASIONAL) Hx Substance Use: Yes (METH) Hx Tobacco Use: Yes Smoking Status: Current every day smoker Physical Exam Vitals Vital Signs Date Temp Pulse Resp B/P (MAP) Pulse Ox O2 O2 Flow FiO2 Time Delivery Rate 01/13/19 98.3 131 19 155/85 96 09:49 (108) Physical Exam Constitutional:Well-developed. Disheveled. HEENT:Normocephalic. Atraumatic.Pupils were equal round reactive to light. Moist mucous membranes.No tonsillar exudates. Neck: No nuchal rigidity. No lymphadenopathy. No posterior cervical spine tenderness or step-offs. No expanding neck hematoma. Ligature barillas on the anterior aspect of the neck. Respiratory: Not using accessory muscles of respiration.Lungs were clear to auscultation bilaterally. No rhonchi. No rales. No wheezing. Cardiovascular: Regular rate regular rhythm.No murmurs. No rubs were appreciated.S1, S2 normal. Distal pulses are palpable 2+ bilaterally. GI: Abdomen was soft. Nontender. Non Distended. No pulsatile abdominal masses or bruits. No rebound. No guarding. Bowel sounds were present and normal. Muscle skeletal: Full range of motion of both the upper and lower extremities bilaterally.Normal muscle tone.No assymetrical calf tenderness or swelling. Skin: No petechia, no purpura. No lesions on the palms or the soles of the feet. No maculopapular rash. NEURO: Patient was alert, awake, orientated x3.No facial droop. Gait observed and normal with no ataxia.Speech had regular rate and rhythm. No focal neurological deficits. PSYCH: Patient expressed suicidal thoughts and ideations. Made poor eye contact. Appeared guarded and spoke in a soft tone. Result Diagram: 01/13/19 1029 01/13/19 1028 Results 24 hrs Laboratory Tests Test 01/13/19 10:10 01/13/19 10:28 01/13/19 10:29 Urine Color YELLOW Urine Clarity SLIGHTLY CLOUDY Urine pH 6.0 Urine Specific [place] 1.030 Urine Ketones TRACE mg/dL Urine Nitrite NEGATIVE mg/dL Urine Bilirubin NEGATIVE mg/dL Urine Urobilinogen 1+ mg/dL Urine Leukocyte Esterase NEGATIVE Chele/ul Urine Microscopic RBC 3 /HPF Urine Microscopic WBC 3 /HPF Urine Mucus FEW /HPF Urine Hemoglobin 1+ mg/dL Urine Glucose NEGATIVE mg/dL Urine Total Protein 1+ mg/dl Urine Opiates Screen NEGATIVE Urine Barbiturates NEGATIVE Urine Amphetamines Screen POSITIVE Urine Benzodiazepines Screen NEGATIVE Urine Cocaine Screen POSITIVE Urine Cannabinoids POSITIVE Sodium Level 141 mmol/L Potassium Level 3.4 mmol/L Chloride Level 103 mmol/L Carbon Dioxide Level 25 mmol/L Anion Gap 13 Blood Urea Nitrogen 15 mg/dl Creatinine 1.28 mg/dl Est Glomerular Filtrat > 60 mL/min Rate mL/min Glucose Level 101 mg/dl Calcium Level 9.2 mg/dl Total Bilirubin 0.5 mg/dl Direct Bilirubin 0.00 mg/dl Indirect Bilirubin 0.5 mg/dl Aspartate Amino 35 IU/L Transf (AST/SGOT) Alanine 24 IU/L Aminotransferase (ALT/SGPT) Alkaline Phosphatase 97 IU/L Total Protein 7.7 g/dl Albumin 4.5 g/dl Globulin 3.20 g/dl Albumin/Globulin Ratio 1.40 Salicylates Level < 1.0 mg/dl Acetaminophen Level < 10.0 ug/ml Ethyl Alcohol Level < 10.0 mg/dl White Blood Count 17.3 10^3/ul Red Blood Count 5.57 10^6/ul Hemoglobin 16.2 g/dl Hematocrit 47.4 % Mean Corpuscular Volume 85.1 fl Mean Corpuscular Hemoglobin 29.1 pg Mean Corpuscular 34.2 g/dl Hemoglobin Concent Red Cell Distribution Width 11.8 % Platelet Count 347 10^3/UL Mean Platelet Volume 10.2 fl Immature Granulocytes % 0.300 % Neutrophils % 78.1 % Lymphocytes % 13.1 % Monocytes % 7.5 % Eosinophils % 0.6 % Basophils % 0.4 % Nucleated Red Blood Cells % 0.0 /100WBC Immature Granulocytes # 0.060 10^3/ul Neutrophils # 13.5 10^3/ul Lymphocytes # 2.3 10^3/ul Monocytes # 1.3 10^3/ul Eosinophils # 0.1 10^3/ul Basophils # 0.1 10^3/ul Nucleated Red Blood Cells # 0.0 10^3/ul Procedures/MDM The patient presented to the emergency department with an active suicidal ideation. My differential diagnosis included but was not limited to major depressive disorder, normal despondency, bipolar disorder, schizophrenia, anxiety disorder, borderline personality disorder, antisocial personality disorder, organic mental disorder, bereavement or alcohol or drug abuse. Ancillary lab work was obtained including blood alcohol level, drug screen and serum toxicology panel. The patient was provided a safe environment while in the emergency department with appropriate supervision. The patient will be seen and evaluated by the tele-psychiatrist as the patient appeared to be a significant threat to himself and attempted hanging. The patient had leukocytosis but I thought this was secondary to an acute stress reaction versus an infectious process. The patient's drug screen was positive for cocaine and amphetamines. Departure Diagnosis: Primary Impression: Suicidal ideation Additional Impression: Polysubstance abuse Condition: Serious SHAHLA JOHNSON MD January 13, 2019 12:46
--- NOTE | 2019-01-13 13:10 | PSY ---
Date/Time of Note Date/Time of Note DATE: 01/13/19 TIME: 13:06 Psychiatric Subjective Eval Consent Pt consented to telemedicine: Yes Subjective Evaluation Patient location: emergency Chief Complaint: SUICIDE ATTEMPT History of present illness 38 YO SINGLE EMPLOYED male self presented to ED s/pSA by hanging. Pt relapsed on drugs on Saturday after a year of being clean. He feels guilty, ashamed, depressed and despondent. He hears voices telling him to kill himself. He denies HI. No meds.UDS + amph, cocaine, thc Past psychiatric history last inpt was 2 years ago Hospitalization: Suicidal Attempt(s) Family History denies Medical history Problems Medical Problems: (1) Acute anaphylaxis Status: Acute (2) Acute asthma exacerbation Status: Acute (3) Asthma Status: Acute (4) Asthma Status: Acute (5) Asthma exacerbation Status: Acute (6) Asthma with acute exacerbation Status: Acute (7) Asthma with acute exacerbation Status: Acute (8) Blister of foot, left Status: Acute (9) Blister of foot, left Status: Acute (10) Cellulitis of foot, left Status: Acute (11) Cellulitis of foot, left Status: Acute (12) Encounter for medication refill Status: Acute (13) Eustachian tube dysfunction Status: Acute (14) Eustachian tube dysfunction Status: Acute (15) Polysubstance abuse Status: Acute (16) Suicidal ideation Status: Acute (17) Wheezing Status: Acute Allergies: Coded Allergies: cephalexin (Verified Allergy, Severe, 01/13/19) Substance Abuse Substance abuse history: Yes Prior substance abuse treatmen: Yes Social History Marital status: single DPA/Conservatorship: No 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; 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 Psychiatric Objective Eval Review of Systems: Review of Systems: Not Applicable Mental Status Examination: Appearance: Groomed Eye Contact: Other Psychomotor Activity: Other Behavior: Cooperative Speech: Clear AFFECT: Depressed Mood: Depressed Though Process: Linear Thought Content: Hallucinations Suicidal: Yes Homicidal: No On 72 hour hold: No Orientation: x4 Cognition: Alert Insight: Impared Judgement: Impared Laboratory Results Laboratory Tests Test 01/13/19 10:10 01/13/19 10:28 01/13/19 10:29 Urine Color YELLOW Urine Clarity SLIGHTLY CLOUDY Urine pH 6.0 Urine Specific [place] 1.030 Urine Ketones TRACE mg/dL Urine Nitrite NEGATIVE mg/dL Urine Bilirubin NEGATIVE mg/dL Urine Urobilinogen 1+ mg/dL Urine Leukocyte Esterase NEGATIVE Chele/ul Urine Microscopic RBC 3 /HPF Urine Microscopic WBC 3 /HPF Urine Mucus FEW /HPF Urine Hemoglobin 1+ mg/dL Urine Glucose NEGATIVE mg/dL Urine Total Protein 1+ mg/dl Urine Opiates Screen NEGATIVE Urine Barbiturates NEGATIVE Urine Amphetamines Screen POSITIVE Urine Benzodiazepines Screen NEGATIVE Urine Cocaine Screen POSITIVE Urine Cannabinoids POSITIVE Sodium Level 141 mmol/L Potassium Level 3.4 mmol/L Chloride Level 103 mmol/L Carbon Dioxide Level 25 mmol/L Anion Gap 13 Blood Urea Nitrogen 15 mg/dl Creatinine 1.28 mg/dl Est Glomerular Filtrat > 60 mL/min Rate mL/min Glucose Level 101 mg/dl Calcium Level 9.2 mg/dl Total Bilirubin 0.5 mg/dl Direct Bilirubin 0.00 mg/dl Indirect Bilirubin 0.5 mg/dl Aspartate Amino 35 IU/L Transf (AST/SGOT) Alanine 24 IU/L Aminotransferase (ALT/SGPT) Alkaline Phosphatase 97 IU/L Total Protein 7.7 g/dl Albumin 4.5 g/dl Globulin 3.20 g/dl Albumin/Globulin Ratio 1.40 Salicylates Level < 1.0 mg/dl Acetaminophen Level < 10.0 ug/ml Ethyl Alcohol Level < 10.0 mg/dl White Blood Count 17.3 10^3/ul Red Blood Count 5.57 10^6/ul Hemoglobin 16.2 g/dl Hematocrit 47.4 % Mean Corpuscular Volume 85.1 fl Mean Corpuscular Hemoglobin 29.1 pg Mean Corpuscular 34.2 g/dl Hemoglobin Concent Red Cell Distribution Width 11.8 % Platelet Count 347 10^3/UL Mean Platelet Volume 10.2 fl Immature Granulocytes % 0.300 % Neutrophils % 78.1 % Lymphocytes % 13.1 % Monocytes % 7.5 % Eosinophils % 0.6 % Basophils % 0.4 % Nucleated Red Blood Cells % 0.0 /100WBC Immature Granulocytes # 0.060 10^3/ul Neutrophils # 13.5 10^3/ul Lymphocytes # 2.3 10^3/ul Monocytes # 1.3 10^3/ul Eosinophils # 0.1 10^3/ul Basophils # 0.1 10^3/ul Nucleated Red Blood Cells # 0.0 10^3/ul Assessment and Plan Assessment/Diagnosis Diagnosis COCAINE USE DISORDER WTIH PSYCHOSIS. THER STIMULANTS USE DISORDER. UNSPECIFIED MOOD DISORDER. Recommendation/Plan Medication Management RISPERIDONE 1 MG po bid; REMERON 15 MG POQHS Multiple antipsychotics: Yes Discharge Disposition: Psychiatric inpatient Legal Status: Place involuntary hold CHRISTINE SCHULTE MD January 13, 2019 13:10
[2019-01-13] MEDS ORDERED: LORAZEPAM 1 MG TAB PO ONE (13:30)
[2019-01-14] MEDS ORDERED: ACETAMINOPHEN 325 MG TAB PO ONE (02:00)
[2019-01-14] MEDS ORDERED: ALBUTEROL 0.083% (NEB) 2.5 MG/3 ML AMP NEB STA (02:17)
[2019-01-14] MEDS ORDERED: IPRATROPIUM (NEB) 0.5 MG/2.5 ML AMP NEB STA (02:17)
--- NOTE | 2019-01-14 08:38 | PSY ---
Date/Time of Note Date/Time of Note DATE: 01/14/19 TIME: 08:33 Psychiatric Subjective Eval Consent Pt consented to telemedicine: Yes Subjective Evaluation Patient location: emergency Chief Complaint: SUICIDE ATTEMPT Reason for consult: SI History of present illness RE-EVAL: pt was seen by this MD yesterday. PT requested to speak to a psychiatrsit because he says he doesn't recall speaking to this MD yesterday. He reiterates his story about relapsing on cocaine, feeling ashamed and trying to kill himself. Denies SI now; depressed. + AH No HI. Past psychiatric history last inpt was 2 years ago for SA Hospitalization: yes Family History denies Medical history Problems Medical Problems: (1) Acute anaphylaxis Status: Acute (2) Acute asthma exacerbation Status: Acute (3) Asthma Status: Acute (4) Asthma Status: Acute (5) Asthma exacerbation Status: Acute (6) Asthma with acute exacerbation Status: Acute (7) Asthma with acute exacerbation Status: Acute (8) Blister of foot, left Status: Acute (9) Blister of foot, left Status: Acute (10) Cellulitis of foot, left Status: Acute (11) Cellulitis of foot, left Status: Acute (12) Encounter for medication refill Status: Acute (13) Eustachian tube dysfunction Status: Acute (14) Eustachian tube dysfunction Status: Acute (15) Polysubstance abuse Status: Acute (16) Suicidal ideation Status: Acute (17) Wheezing Status: Acute Allergies: Coded Allergies: cephalexin (Verified Allergy, Severe, 01/13/19) Substance Abuse Substance abuse history: Yes Prior substance abuse treatmen: Yes Social History Marital status: single Level of education: SOME HIGH SCHOOL DPA/Conservatorship: No 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; 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 Psychiatric Objective Eval Review of Systems: Review of Systems: Not Applicable Mental Status Examination: Appearance: Disheveled Eye Contact: Good Psychomotor Activity: Normal Behavior: Cooperative Speech: Clear AFFECT: Depressed Mood: Depressed Though Process: Linear Thought Content: Hallucinations Suicidal: Yes Homicidal: No On 72 hour hold: Yes Orientation: x4 Cognition: Alert Insight: Impared Judgement: Impared Laboratory Results Laboratory Tests Test 01/13/19 10:10 01/13/19 10:28 01/13/19 10:29 Urine Color YELLOW Urine Clarity SLIGHTLY CLOUDY Urine pH 6.0 Urine Specific [place] 1.030 Urine Ketones TRACE mg/dL Urine Nitrite NEGATIVE mg/dL Urine Bilirubin NEGATIVE mg/dL Urine Urobilinogen 1+ mg/dL Urine Leukocyte Esterase NEGATIVE Chele/ul Urine Microscopic RBC 3 /HPF Urine Microscopic WBC 3 /HPF Urine Mucus FEW /HPF Urine Hemoglobin 1+ mg/dL Urine Glucose NEGATIVE mg/dL Urine Total Protein 1+ mg/dl Urine Opiates Screen NEGATIVE Urine Barbiturates NEGATIVE Urine Amphetamines Screen POSITIVE Urine Benzodiazepines Screen NEGATIVE Urine Cocaine Screen POSITIVE Urine Cannabinoids POSITIVE Sodium Level 141 mmol/L Potassium Level 3.4 mmol/L Chloride Level 103 mmol/L Carbon Dioxide Level 25 mmol/L Anion Gap 13 Blood Urea Nitrogen 15 mg/dl Creatinine 1.28 mg/dl Est Glomerular Filtrat > 60 mL/min Rate mL/min Glucose Level 101 mg/dl Calcium Level 9.2 mg/dl Total Bilirubin 0.5 mg/dl Direct Bilirubin 0.00 mg/dl Indirect Bilirubin 0.5 mg/dl Aspartate Amino 35 IU/L Transf (AST/SGOT) Alanine 24 IU/L Aminotransferase (ALT/SGPT) Alkaline Phosphatase 97 IU/L Total Protein 7.7 g/dl Albumin 4.5 g/dl Globulin 3.20 g/dl Albumin/Globulin Ratio 1.40 Salicylates Level < 1.0 mg/dl Acetaminophen Level < 10.0 ug/ml Ethyl Alcohol Level < 10.0 mg/dl White Blood Count 17.3 10^3/ul Red Blood Count 5.57 10^6/ul Hemoglobin 16.2 g/dl Hematocrit 47.4 % Mean Corpuscular Volume 85.1 fl Mean Corpuscular Hemoglobin 29.1 pg Mean Corpuscular 34.2 g/dl Hemoglobin Concent Red Cell Distribution Width 11.8 % Platelet Count 347 10^3/UL Mean Platelet Volume 10.2 fl Immature Granulocytes % 0.300 % Neutrophils % 78.1 % Lymphocytes % 13.1 % Monocytes % 7.5 % Eosinophils % 0.6 % Basophils % 0.4 % Nucleated Red Blood Cells % 0.0 /100WBC Immature Granulocytes # 0.060 10^3/ul Neutrophils # 13.5 10^3/ul Lymphocytes # 2.3 10^3/ul Monocytes # 1.3 10^3/ul Eosinophils # 0.1 10^3/ul Basophils # 0.1 10^3/ul Nucleated Red Blood Cells # 0.0 10^3/ul Assessment and Plan Assessment/Diagnosis Diagnosis Unspecified mood disorder Recommendation/Plan Medication Management deer to inpt Discharge Disposition: Psychiatric inpatient Legal Status: Continue involuntary hold Other transfer to in psych for dts. CHRISTINE SCHULTE MD January 14, 2019 08:38
[2019-01-14 13:51] VITALS: BP 128/78; PULSE 97; RESP 16
[2019-01-14] MEDS ORDERED: RISPERIDONE 1 MG TAB PO SCH (14:30)
[2019-01-14] MEDS ORDERED: MIRTAZAPINE 15 MG TAB PO SCH (21:00)
== END 2019-01-14 14:08 | disposition home or self-care (01) ==
LOC: E/R 09:42
DX: R45.851 Suicidal ideations (principal); F19.10 Other psychoactive substance abuse, uncomplicated; F17.210 Nicotine dependence, cigarettes, uncomplicated; R40.2142 Coma scale, eyes open, spontaneous, at arrival to emergency department; J45.909 Unspecified asthma, uncomplicated; R40.2252 Coma scale, best verbal response, oriented, at arrival to emergency department
CPT/HCPCS: 80053; 80307; 81001; 85025; 94664; Z7502; Z7610

== ENCOUNTER 2019-05-13 10:56 | Emergency (ER) | payer MEDICAID, OTHER ==
[~2019-05-13] VITALS: Ht 172.7 cm; Wt 102.4 kg
[~2019-05-13 10:56] MED LIST changes: -ALBU2.5V3 NEB; -ALBU8.5H8; -BECL10.62 IH; -CLOT30CR24 TOP; -DIPH25CA6 PO; -IBUP-1542 PO; -PRED20TA PO; -PRED50TA PO; -SULF1TAB31 PO
[2019-05-13 11:05] VITALS: BP 134/73; PULSE 96; RESP 20; Ht 172.7 cm; Wt 102.4 kg
[2019-05-13] MEDS ORDERED: DEXAMETHASONE 10 MG/ML 1 ML INJ IM STA (12:21)
[2019-05-13] MEDS ORDERED: IPRATROPIUM (NEB) 0.5 MG/2.5 ML AMP NEB STA (12:21)
[2019-05-13] MEDS ORDERED: ALBUTEROL 0.083% (NEB) 2.5 MG/3 ML AMP NEB STA (12:21)
== END 2019-05-13 14:04 | disposition home or self-care (01) ==
LOC: FTE 10:56
DX: J45.901 Unspecified asthma with (acute) exacerbation (principal); F17.210 Nicotine dependence, cigarettes, uncomplicated; Z76.0 Encounter for issue of repeat prescription
CPT/HCPCS: 71045; 94664; 96372; 99284; J1100